=== PATIENT | female | born 1945 | race Caucasian/White ===

== ENCOUNTER → 2017-10-23 12:40 | Outpatient (CLI) | payer MEDICARE, OTHER, SELFPAY ==
--- NOTE | 2017-10-23 | DI.MRI.S_ITS ---
PROCEDURE: MR LUMBAR SPINE WO CON INDICATIONS: LOW BACK PAIN TECHNIQUE: Noncontrast sagittal T1 spin echo and T2 fast echo, sagittal STIR, axial T1 and T2 fast spin echo through the lumbar spine. In cases with scoliosis, additional coronal T2 fast spin echo may be performed. COMPARISON: [facility], , L-SPINE 2-3 VIEWS, 03/26/2013, 18:39. FINDINGS: Image quality: Excellent. Alignment and Curvature: There is mild grade 1 anterolisthesis seen at the L3-L4 level. Bone Marrow: Marrow is of normal overall signal. No acute vertebral body compression fractures. Spinal Cord: Conus medullaris terminates at the L1 level. Visualized cord demonstrates normal signal and size. Mild prominence of the central canal can be seen involving the conus, which is not regarded to be frankly pathologic. Paraspinous Soft Tissues: No paravertebral masses. T12-L1: Normal appearance. L1-L2: Normal appearance. L2-L3: Mild loss of disc height is seen. Loss of disc signal is seen. Mild generalized disc bulge is seen. Moderate facet joint hypertrophy is seen. No significant neural foraminal narrowing is seen. Mild central canal narrowing is seen. L3-L4: Mild to moderate loss of disc height and disc signal are seen. Moderate disc bulge is seen, which is eccentric to the left. Prominent facet hypertrophy seen, with associated moderate hypertrophy of the ligamentum flavum. Moderate bilateral neural foraminal narrowing is seen. Moderate central canal narrowing is seen. L4-L5: Postoperative changes are seen this level, with a disc spacer and right-sided pedicle screws. There is associated susceptibility artifact. The disc height is relatively well-preserved. Mild to moderate disc bulge is seen. No significant neural foraminal or central canal narrowing are seen. L5-S1: Moderate to severe loss of disc height is seen. Mild generalized disc bulge is seen. Mild facet joint hypertrophy is seen. No neural foraminal or central canal narrowing can be seen. IMPRESSION: Unremarkable postoperative change at L4-L5. Mild grade 1 anterolisthesis at the L3-L4. Multiple levels of degenerative change are seen, which are most prominent at the L3-L4 level. Dictated by: Nikolay Jaramillo M.D. on 10/23/2017 at 13:13 Approved by: Nikolay Jaraimllo M.D. on 10/23/2017 at 13:20
== END ==
PROVIDERS: PCP Physician Assistant; Visit Provider Orthopaedic Surgery
DX: M51.36 Other intervertebral disc degeneration, lumbar region (principal); M43.16 Spondylolisthesis, lumbar region
CPT/HCPCS: 72148

== ENCOUNTER → 2018-01-15 13:30 | Outpatient (CLI) | payer MEDICARE, OTHER, SELFPAY ==
--- NOTE | 2018-01-15 13:32 | DI.MRI.S_ITS ---
PROCEDURE: MR HIP RT WO CON INDICATIONS: Right hip actabulosis impingement TECHNIQUE: Noncontrast coronal T1 spin echo and STIR through the bony pelvis. Coronal and axial T2 fast spin echo with fat saturation, sagittal T1 spin echo, and oblique axial T2 fast spin echo with fat saturation through the hip. COMPARISON: None. FINDINGS: Image quality: Excellent. Bones and joints: Lumbar spinal instrumentation. Bone marrow of the pelvic ring and proximal femurs show normal signal throughout. No intraosseous lesions or fractures. No avascular necrosis of the femoral heads. The visualized lower lumbar spine appears normally aligned. Tendons and ligaments: The gluteus medius and minimus tendons appear intact, without associated muscle atrophy. The nearby proximal iliotibial band also appears intact. The iliopsoas tendon appears intact, without adjacent bursal fluid collections or evidence for impingement syndrome. The origin of the hamstring tendon is mildly enlarged with heterogeneous signal change at the ischial tuberosity in keeping with low-grade age indeterminate tendinopathy. The straight and reflected heads of the rectus femoris muscle origin appear intact, as well as the conjoint tendon. The ligamentum teres appears intact where visualized. Labrum and cartilage: The acetabular labrum appears intact although there may be age-related fraying.Partial-thickness loss of the right hip articular cartilage. The alpha angle of the femur is within normal limits at less than 55 degrees. Soft tissues: Visualized muscles demonstrate normal bulk and internal signal. Quadratus femoris muscle demonstrates no internal edema to suggest ischiofemoral impingement. The proximal sciatic neurovascular bundle appears normal adjacent to the the hamstring tendons. No free pelvic fluid. Bladder wall thickness is normal. Large heterogeneous mass within the pelvis probably involving the uterus. These probably represent uterine fibroids, however indeterminate. IMPRESSION: Right hip degeneration. No definite labral tear although if there is persistent high clinical suspicion, dedicated hip MR arthrography could be performed. Mild tendinopathy involving the hamstring origin, age-indeterminate. Multiple intrapelvic and adnexal masses, which could represent large uterine fibroids although technically indeterminate. Please correlate clinically man with laboratory data. If necessary, dedicated evaluation with contrast enhanced pelvic MRI could be performed or continued surveillance with serial pelvic ultrasound examinations to exclude possible ovarian neoplasm. Dictated by: Alexis Whatley M.D. on 01/15/2018 at 15:15 Approved by: Alexis Whatley M.D. on 01/15/2018 at 15:35
== END ==
PROVIDERS: PCP Physician Assistant; Visit Provider Physical Medicine & Rehabilitation
DX: M25.851 Other specified joint disorders, right hip (principal); M16.11 Unilateral primary osteoarthritis, right hip; R19.09 Other intra-abdominal and pelvic swelling, mass and lump
CPT/HCPCS: 73721

== ENCOUNTER 2018-02-21 10:17 | Day surgery (SDC) | payer MEDICARE, OTHER, SELFPAY ==
--- NOTE | 2018-02-21 08:15 | PM.PREOP ---
Pre-operative Note Interval Note Pre-op Check: Yes History & Physical Reviewed by Physician Changes: No
[2018-02-21 10:55] VITALS: BP 144/77; PULSE 65; RESP 16; TEMP 36.8; O2SAT 100; BMI 24.9
[2018-02-21] MEDS: PROPARACAINE 0.5% OPHTH SOL 2 DROPS EYE-OP (11:00)
[2018-02-21] MEDS: CATARACT EYE COMPOUND (10 DROPS/SYRINGE) 3 DROPS EYE-OP (11:05)
[2018-02-21 11:30] VITALS: BP 120/70; PULSE 64; RESP 20; O2SAT 100
[2018-02-21 11:50] VITALS: BP 128/78; PULSE 63; RESP 20; TEMP 36.6; O2SAT 98
[2018-02-21] MEDS: BALANCED SALT IRRIG SOLN NO.2 15 ML IRRIG.SOLN IRR (12:11)
[2018-02-21] MEDS: HYALURONATE SODIUM 10 MG/ML SYRINGE INJ (12:12)
[2018-02-21] MEDS: MOXIFLOXACIN OPHTH DROPS 3 ML BOTTLE 2 DROPS INJ (12:12)
[2018-02-21] MEDS: OFLOXACIN 0.3% OPHTH 5 ML 2 DROPS EYE-RIGHT (12:12)
[2018-02-21] MEDS: NEOMYCIN/POLY/DEX OPHTH OINT 1 APPLIC EYE-RIGHT (12:12)
[2018-02-21] MEDS: CHONDROIDTIN/SOD HYALURONATE 1.05 ML SYRINGE INTRAOCULA (12:12)
[2018-02-21] MEDS: PHENYLEPHRINE/LIDOCAINE VIAL (OR) 0.2 ML EYE-OP (12:13)
[2018-02-21] MEDS: BALANCED SALT IRRIG SOLN NO.2 500 ML, EPINEPHrine 1 MG IRR (12:14)
[2018-02-21] MEDS: LIDOCAINE 2% 4 ML, BUPIVACAINE 0.5% (PF) 4 ML, HYALURONIDASE 150 UNIT INJ (12:14)
[2018-02-21] MEDS: TRIAMCINOLONE 50 MG/5 ML VIAL INJ (12:14)
--- NOTE | 2018-02-21 14:43 | PM.OP.1 ---
Operative Date/Time/Diagnoses Date of procedure: 02/21/18 Time of procedure: 12:00 Procedure & Clinicians Procedure: Date of service: February 21, 2018 Preoperative diagnoses: 1. Right cortical nuclear sclerotic cataract. 2. Poliosis. 3. Neuropathy. Postoperative diagnoses: 1. Cataract removed with phacoemulsification and posterior chamber intraocular lens. Procedure: Phacoemulsification with posterior chamber intraocular lens implant. Surgeon: Fide Galan MD Complications: None Specimen: None Implant: [id number] Blood loss: None Anesthesia: Retrobulbar with monitored standby Anesthesiologist: Casimiro Salcedo M.D. Description of procedure: Patient is a female year old with decreased vision due to cataract which is affecting activities of daily living. She wants surgery to improve vision. She was taken to the operating room and given IV sedation. A retrobulbar block insert consisting of 6 cc of 2% xylocaine without epinephrine mixed half and half with 0.5% Marcaine with 1 cc of hyaluronidase added is placed between the medial and lateral 1/3 of the inferior orbital rim. Lid akinesia is obtain with 1% xylocaine with epinephrine infiltrated along the lid margin. The eye is manually massaged for 30 sec, prepped using Betadine solution, and draped in the usual sterile fashion. Temporal approach was made, a 1 mm side-port incision was made at the 7:30 position. Phenylephrine 1.5% mixed with 1% xylocaine 0.2 cc was placed into the anterior chamber. Viscoat followed by Citlalli was then placed. A 2.6 mm clear incision with a 2.6 mm blade was placed at the 170 degree meridian. A 360 degree capsulorrhexis style capsulotomy was then performed with a cystitome needle on a Healon. Hydrodelineation and hydrodissection were performed. The phacoemulsification unit is introduced, and sculpting notice used to groove the central lens. It is then removed in chopping mode. Epi nucleus is removed with epinuclear mode and irrigation aspiration was used to remove the peripheral cortex. The posterior capsule is polished. The intraocular lens is selected, inspected, power confirmed, and placed in the posterior chamber. The pupil was constricted. The wound was stromally hydrated and tested for leaks, there was none and left sutureless. Vigamox 0.1 cc was placed into the anterior chamber. Kenalog 0.2 cc was placed in the superior subconjunctival space. A drop of antibiotic and was placed and the eye was patched and shielded. The patient was stable and returned to the recovery room in excellent condition. Dictated by: Fide Galan MD Copy to: [facility] Same procedure as scheduled: Yes
== END 2018-02-21 13:00 ==
LOC: OR 10:18
PROVIDERS: PCP Physician Assistant; Visit Provider Ophthalmology
DX: H25.11 Age-related nuclear cataract, right eye (principal); I10 Essential (primary) hypertension
CPT/HCPCS: J0171; J2704; J3301; J3470

== ENCOUNTER → 2018-02-26 14:07 | Outpatient (CLI) | payer MEDICARE, OTHER, SELFPAY ==
--- NOTE | 2018-02-26 | DI.US.S_ITS ---
PROCEDURE: US PELVIC COMPLETE INDICATIONS: FIBROIDS TECHNIQUE: Real-time scanning was performed of the pelvic organs, with image documentation. Additional endovaginal scanning was necessary due to incomplete visualization of the adnexal and endometrial structures by transabdominal scanning. COMPARISON: None. FINDINGS: Transabdominal scanning: Limited scanning through the kidneys shows no hydronephrosis. No pathologic free abdominal or pelvic fluid. Endovaginal scanning: Uterus: Uterus is enlarged in size at the 8.7 x 12.4 x 11.0 cm, and the uterus contains at least 2 distinguishable presumed fibroids located at the midline anteriorly in the subserosal space measuring up to 9.6 cm and located on the right anteriorly in the subserosal space measuring up to 4.9 cm.. The endometrium cannot be clearly visualized due to the heterogeneous echotexture of the myomatous uterus, and note is made of fluid within what appears to be the endometrial canal with a 1.1 x 0.9 x 1.1 cm nodule within. Ovaries: The ovaries are not visualized. IMPRESSION: There is a discrete nodular mass within the endometrial space measuring up to 1.1 cm, in addition to distortion of the myometrium by at least 2 large fibroids the largest of which measures up to 12.4 cm. The nodule within the endometrial space demonstrates internal vascularity, and presumably represents a endometrial polyp but gynecological consultation is recommended for consideration of excisional biopsy in this postmenopausal 72-year-old patient. Nonvisualization of the ovaries bilaterally presumably due to postmenopausal ovarian atrophy and overlying bowel gas. Dictated by: Javi Mann M.D. on 02/26/2018 at 15:31 Approved by: Javi Mann M.D. on 02/26/2018 at 15:36
== END ==
PROVIDERS: PCP Physician Assistant; Visit Provider Physician Assistant
DX: D25.2 Subserosal leiomyoma of uterus (principal); D26.1 Other benign neoplasm of corpus uteri
CPT/HCPCS: 76830; 76856

== ENCOUNTER 2018-03-14 06:42 | Day surgery (SDC) | payer MEDICARE, OTHER, SELFPAY ==
--- NOTE | 2018-03-09 16:53 | PM.PREOP ---
Pre-operative Note Interval Note Pre-op Check: Yes History & Physical Reviewed by Physician Changes: No
--- NOTE | 2018-03-09 16:54 | P.OP_ITS ---
Operative Date/Time/Diagnoses Date of procedure: 03/09/18 Time of procedure: 08:00 Procedure & Clinicians Procedure: Date of service:February Preoperative diagnoses: 1. Nuclear sclerotic and cortical cataract 2. Astigmatism which she likes to correct the toric intra-ocular lens. Postoperative diagnoses: 1. Cataract Removed with phacoemulsification with placement of a posterior chamber toric intraocular lens implant. Procedure: Phacoemulsification with posterior chamber intraocular lens implant Surgeon: Fide Galan MD Complications: none Specimen: None Implant:[id number] [place] 091 Blood loss: None Anesthesia: Retrobulbar with monitored standby Anesthesiologist: Sarmad Hagan M.D. Description of procedure: Patient is a 72 year old female with decreased vision due to cataract which is affecting activities of daily living. She wants surgery to improve vision. She also wishes to collect her astigmatism and have a nearsighted target. She was taken to the operating room and given IV sedation. A retrobulbar block consisting of 6 cc of 2% xylocaine without epinephrine mixed half and half with 0.5% Marcaine with 1 cc of hyaluronidase added is placed between the medial and lateral 1/3 of the inferior orbital rim. The eye is manually massaged for 30 sec, prepped using Betadine solution, and draped in the usual sterile fashion. Temporal approach was made, a 1 mm side-port incision was made at the 12 oclock meridian. Phenylephrine 1.5% mixed with 1% xylocaine 0.2 cc was placed into the anterior chamber. Viscoat followed by Citlalli was then placed. A 2.6 mm clear incision with a 2.6 mm blade was placed at the 3 oclock meridian. A 360 degree capsulorrhexis style capsulotomy was then performed with a cystitome needle on a Healon. Hydrodelineation and hydrodissection were performed. The phacoemulsification unit is introduced, and sculpting notice used to groove the central lens. It is then removed in chopping mode. Epi nucleus is removed with epinuclear mode and irrigation aspiration was used to remove the peripheral cortex. The posterior capsule is polished. The intraocular lens is selected, inspected, power confirmed, and placed in the posterior chamber at the 91 degree meridian. The pupil was not constricted. The wound was stromally hydrated and tested for leaks, there was none and was left sutureless. Vigamox 0.1 cc was placed into the anterior chamber. Kenalog 0.2 cc was placed in the superior subconjunctival space. A drop of antibiotic and was placed and the eye was patched and shielded. The patient was stable and returned to the recovery room in excellent condition. Dictated by: Fide Galan MD Copy to: [facility] Same procedure as scheduled: Yes
[2018-03-14] MEDS: PROPARACAINE 0.5% OPHTH SOL 2 DROPS EYE-OP (07:10)
[2018-03-14] MEDS: CATARACT EYE COMPOUND (10 DROPS/SYRINGE) 3 DROPS EYE-OP (07:13)
[2018-03-14 07:14] VITALS: BP 134/77; PULSE 69; RESP 15; TEMP 36.6; O2SAT 100; BMI 25.2
[2018-03-14] MEDS: MOXIFLOXACIN OPHTH DROPS 3 ML BOTTLE 2 DROPS INJ (08:13)
[2018-03-14] MEDS: LIDOCAINE 2% 4 ML, BUPIVACAINE 0.5% (PF) 4 ML, HYALURONIDASE 150 UNIT INJ (08:15)
[2018-03-14] MEDS: BALANCED SALT IRRIG SOLN NO.2 500 ML, EPINEPHrine 1 MG IRR (08:16)
[2018-03-14] MEDS: TRIAMCINOLONE 50 MG/5 ML VIAL INJ (08:17)
[2018-03-14] MEDS: PHENYLEPHRINE/LIDOCAINE VIAL (OR) 0.2 ML EYE-OP (08:18)
[2018-03-14] MEDS: CHONDROIDTIN/SOD HYALURONATE 1.05 ML SYRINGE INTRAOCULA (08:18)
[2018-03-14] MEDS: HYALURONATE SODIUM 10 MG/ML SYRINGE INJ (08:19)
[2018-03-14] MEDS: TOBRA/DEX 0.3%/0.1% OPHTH OINT 1 APPLIC EYE-LEFT (08:22)
[2018-03-14] MEDS: NEOMYCIN/POLY/DEX OPHTH OINT 1 APPLIC EYE-LEFT (08:30)
[2018-03-14] MEDS: BALANCED SALT IRRIG SOLN NO.2 15 ML IRRIG.SOLN IRR (08:31)
[2018-03-14 08:44] VITALS: BP 137/74; PULSE 71; RESP 15; TEMP 36.6; O2SAT 95
== END 2018-03-14 08:55 | disposition home or self-care (01) ==
LOC: OR 06:45
PROVIDERS: PCP Physician Assistant; Visit Provider Ophthalmology
DX: H25.12 Age-related nuclear cataract, left eye (principal); H52.202 Unspecified astigmatism, left eye; I10 Essential (primary) hypertension
CPT/HCPCS: J0171; J2250; J2704; J3010; J3301; J3470; V2787

== ENCOUNTER 2018-04-21 08:49 | Emergency (ER) | payer MEDICARE, OTHER, SELFPAY ==
[2018-04-21 08:52] VITALS: BMI 24.9
[2018-04-21 09:00] VITALS: BP 144/90; PULSE 101; O2SAT 99
--- NOTE | 2018-04-21 09:42 | ED.BACK ---
HPI - Back Pain/Injury General Chief Complaint: Back Pain/Injury Stated Complaint: BACK PAIN Time Seen by Provider: 04/21/18 09:34 Source: patient, family and old records reviewed Mode of arrival: ambulatory Limitations: no limitations History of Present Illness HPI Narrative: This is a 72-year-old female who comes to the emergency department with complaint of back pain. Patient states she has had chronic back and hip issues in the past. She has seen Dr. marvin as well as Dr. Joseph is. She also follows with pain management. She typically takes a half tablet of hydrocortisone debris times daily for pain. Yesterday she was walking down the hallway when she felt a sudden increase in low back pain and radiation to the right buttock and leg. Patient states she has had similar in the past but not quite as intense. She is not having any numbness tingling. She is not having any new loss of bowel or bladder control. She has not had any fevers, no chest pain or shortness of breath, no other GI or urinary symptoms. Patient had an MRI in October which did show bulging discs in the L4-L5 region patient has had injections in that area before. And there has been discussion of surgery. Patient has had a Medrol Dosepak before with a good improvement of her symptoms. She is also taking Celebrex daily. Related Data Home Medications Medication Instructions Recorded Confirmed diclofenac sodium [Voltaren] 1 ashlie TOPICAL QDAYP PRN #0 06/27/16 04/17/18 medroxyprogesterone 2.5 mg PO QDAY #0 06/27/16 04/17/18 celecoxib PO 12/22/17 04/17/18 gabapentin 600 mg PO BID 12/22/17 04/17/18 hydrocodone bitartrate ER 10 mg 10 mg PO Q12H 02/08/18 04/17/18 capsule, oral only, extended rel 12 hr lisinopril-hydrochlorothiazide 1 tab PO DAILY 02/21/18 04/17/18 Previous Rx's Medication Instructions Recorded hydrocodone-acetaminophen [Reliance] 1 tab PO Q6H #5 tab 04/21/18 methylprednisolone [Medrol (Seth)] See Label Instructions PO PER PKG 04/21/18 DIR #21 each Allergies Allergy/AdvReac Type Severity Reaction Status Date / Time epinephrine [EPINEPHRINE] Allergy Severe I WENT Verified 04/17/18 12:04 INTO SHOCK, TACHYCARDIA adhesive [ADHESIVE] Allergy Intermediate STERI-STRIP: Verified 04/17/18 12:04 RASH,INFECTION Penicillins [PENICILLINS] Allergy Intermediate RASH Verified 04/17/18 12:04 Review of Systems Review of Systems All systems reviewed & are unremarkable except as noted in HPI and below Constitutional Denies fever(s) Cardiovascular Denies chest pain and Denies dyspnea Respiratory Denies dyspnea Gastrointestinal Gastrointestinal: Denies abdominal pain, Denies change in bowel habits, Denies fecal incontinence, Denies diarrhea, Denies nausea and Denies vomiting Genitourinary Denies hematuria, Denies dysuria, Denies flank pain, Denies urinary incontinence and Denies urinary urgency Musculoskeletal Reports as per HPI, Reports back pain, Denies limited range of motion, Denies muscle weakness, Denies numbness, Reports radiating pain into limb and Reports stiffness Neurologic Denies focal weakness, Denies numbness and Reports radicular pain (Right leg) [facility] Social History household members: spouse Smoking Status: Never smoker Exam Narrative Exam Narrative: GENERAL: Alert and oriented x three, well-nourished, well-appearing female in mild to moderate distress. HEENT: Head normocephalic, atraumatic, EOMI, pupils reactive, face symmetric, moist mucous membranes NECK: Supple, full range of motion CARDIOVASCULAR: Regular rate and rhythm without murmurs, rubs or gallops. RESPIRATORY: Breath sounds equal bilaterally, no wheezes rales or rhonchi. ABDOMEN: Soft, nontender. Normoactive bowel sounds all 4 quadrants. No guarding or rebound, rigidity, no mass : No CVA tenderness BACK: No cervical, thoracic or lumbar vertebral point tenderness. Patient has normal range of motion although she does have discomfort with rolling over on the bed or sitting up. Rectal exam is normal sphincter tone. Muscle strength is 5/5 in lower extremities, DTRs are 2/4 and lower extremities. Dorsalis pedis and tibialis pulses are 2+ and lower extremities. Sensation is intact in the lower extremities. EXTREMITIES: Normal range of motion, no clubbing or edema. Neurovascularly intact NEUROLOGICAL: Cranial nerves II through XII grossly intact. Moving all extremities SKIN: Warm, dry, no petechiae, no rashes or lesions. Initial Vital Signs Initial Vital Signs: Vital Signs Pulse Rate 101 H 04/21/18 09:00 Blood Pressure 144/90 H 04/21/18 09:00 Pulse Oximetry 99 04/21/18 09:00 Course Orders Ordered: Discontinued Medications Hydrocodone Bitart/Acetaminophen (Reliance 10/325) 1 tab PO NOW ONE Stop: 04/21/18 10:36 Hydrocodone Bitart/Acetaminophen (Reliance 5/325) 1 tab PO NOW ONE Stop: 04/21/18 10:37 Last Admin: 04/21/18 10:37 Dose: 1 tab Cyclobenzaprine HCl (Flexeril) 10 mg PO NOW ONE Stop: 04/21/18 09:58 Last Admin: 04/21/18 10:20 Dose: 10 mg Ketorolac Tromethamine (Toradol) 30 mg IM NOW ONE Stop: 04/21/18 09:58 Last Admin: 04/21/18 10:20 Dose: 30 mg Vital Signs - 8 hr 04/21/18 09:00 04/21/18 10:00 04/21/18 11:03 Pulse Rate 101 H 86 62 Respiratory Rate 16 Blood Pressure [Right Arm] 144/90 H 134/71 152/95 H Pulse Oximetry 99 98 100 MDM - Back Pain/Injury MDM Narrative Medical decision making narrative: Discussed with patient she does not have any red flag symptoms, she does have known disc bulging on prior MRI and we discussed follow-up for possibly BP MRI if her symptoms are not improving over the next couple days. She has follow-up in the next month with Dr. Joseph as for her back she noticed she was having a little bit of flare up over the last couple days. She has had good response to Medrol Dosepaks and will continue this. We will give her several tablets of hydrocodone in case she needs a little bit extra for breakthrough pain. She is to continue her Celebrex and she has Flexeril at home as well. Discharge Plan Departure Patient Disposition: Home Clinical Impression: Low back pain Discharge Date/Time: 04/21/18 11:14 Interventions: ED Discharge Assessment Last Done: 04/21/18 11:13 Instructions: DI for Low Back Pain Activity Restrictions/Additional Instructions: Follow-up with your primary care in the next 7-10 days for recheck. You may also call Dr. ceballos office with Orthopedic surgery for follow-up as well. Continue your hydrocodone half tablet 3 times daily you may take a full tablet if needed. You may take Flexeril which you have at home 1 tablet every 8 hr as needed for muscle spasm. Continue your Celebrex as prescribed. Take Medrol Dosepak until it is completed. I would recommend taking this medication with food. Return to the ER for fevers, new loss of bowel or bladder control, rapidly worsening in pain, new numbness or weakness of your extremity with inability to lift or move your foot, legs or toes. Prescriptions: New methylprednisolone [Medrol (Seth)] 4 mg tablets,dose pack See Label Instructions PO PER PKG DIR Qty: 21 RF: 0 hydrocodone-acetaminophen [Reliance] 5-325 mg tablet 1 tab PO Q6H Qty: 5 RF: 0 No Action medroxyprogesterone 2.5 MG tablet 2.5 mg PO QDAY Qty: 0 RF: 0 diclofenac sodium [Voltaren] 1 % gel 1 ashlie Topical QDAYP PRNQty: 0 RF: 0 lisinopril-hydrochlorothiazide 10-12.5 mg Tablet 1 tab PO DAILY RF: 0 gabapentin 600 mg PO BID RF: 0 celecoxib PO RF: 0 hydrocodone bitartrate 10 mg capsule, oral only, ER 12hr 10 mg PO Q12H RF: 0 Referrals: Kin Valdivia MD [Physician] - Jocelyne Araujo PA-C [Primary Care Provider] -
[2018-04-21 10:00] VITALS: BP 134/71; PULSE 86; O2SAT 98
[2018-04-21] MEDS: KETOROLAC 60 MG/2 ML VIAL 30 MG IM (10:20)
[2018-04-21] MEDS: CYCLOBENZAPRINE 10 MG TABLET PO (10:20)
[2018-04-21] MEDS: HYDROCODONE/ACET 5/325 TABLET 1 TAB PO (10:37)
--- NOTE | 2018-04-21 10:45 | PC.NURSE ---
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 now with severe back pain.
[2018-04-21 11:03] VITALS: BP 152/95; PULSE 62; RESP 16; O2SAT 100
== END 2018-04-21 11:14 | disposition home or self-care (01) ==
PROVIDERS: Emergency Provider Emergency Medicine; PCP Physician Assistant
DX: M54.9 Dorsalgia, unspecified (principal)
CPT/HCPCS: 96372; 99283; J1885

== ENCOUNTER 2018-05-29 13:11 | Outpatient (CLI) | payer MEDICARE, OTHER, SELFPAY ==
[2018-05-29] VITALS (7 sets, daily range): BP systolic 112–130; BP diastolic 71–84; PULSE 16–78; RESP 11–16; TEMP 36.4; O2SAT 97–100
--- NOTE | 2018-05-29 13:13 | DI.RAD.S_ITS ---
PROCEDURE: PAIN L/S TRANSFORAMINAL INJECT INDICATIONS: SPINAL STENOSIS FINDINGS: Fluoroscopic spot filming was performed to verify placement of spinal needles at the L3-L4 level(s), as labeled on the films. Appropriate location(s) of the needle tip(s) was confirmed by injection of iodinated contrast. Note is made of right hemilaminectomy and spinal fusion at L4-L5. IMPRESSION: Fluoroscopy for pain management. Dictated by: Sarah Dolan M.D. on 05/30/2018 at 9:26 Approved by: Sarah Dolan M.D. on 05/30/2018 at 9:27
[2018-05-29] MEDS: MIDAZOLAM 5 MG/5 ML VIAL IV (13:50)
--- NOTE | 2018-05-29 14:04 | PC.NURSE ---
Pt tolerated procedure well. Able to get off table with 2 person assist. Right leg wouldn't work for her. Pt alert and awake and able to make it to W/C. Transferred pt to pre procedure room via W/C for continued care by Silvana KENDRICK.
--- NOTE | 2018-05-29 14:06 | P.PCN_ITS ---
Procedures Date/Time Date of procedure: 05/29/18 Time of procedure: 14:05 General Procedure description: PROVIDER: Elroy Joseph DO Operative Note PREOP DIAGNOSIS 1. FORAMINAL STENOSIS WITH LE SYMPTOMS, POST OP DIAGNOSIS 1. FORAMINAL STENOSIS WITH LE SYMPTOMS, PROCEDURES 1. FLUOROSCOPICALLY GUIDED CONTRAST CONTROLLED TRANSFORAMINAL EPIDURAL STEROID INJECTION - RIGHT L3/4 TFESI SURGEON: Elroy Joseph DO INDICATIONS Enrique is referred by CIARA Araujo for treatment of Foraminal Stenosis with right LE Symptoms FINDINGS Foraminal Nerve Root Compression secondary to disc disease and facet hypertrophy DESCRIPTION OF PROCEDURE Following denial of allergy and review of potential side effects and complications, including, but not necessarily limited to, infection, allergic reaction, local tissue breakdown, stroke, temporary or permanent nerve injury, paralysis, and possible , the patient indicated that the patient understood and agreed to proceed. An informed consent document was signed by the patient, witnessed by a nurse, and placed in the patient's chart. Additionally, other treatment options including medications, modalities, and physical therapy were reviewed with the patient. After review of previous anaesthesic history and IV conscious sedation the patient was deemed safe to proceed with todays procedure with IV conscious sedation as ASA class II designation. Safety time-out was performed to confirm patient ID, procedure to be performed and site of procedure. IV sedation was accomplished with a combination of 2mg was administered by the RN after DO order , titrated to patient comfort during the course of the procedure while the patient remained responsive to all verbal commands In the prone position following sterile prep and drape of the lumbar region, the right L3/4 posterior neuroforamen was identified fluoroscopically. The skin was anesthetized via a 25-gauge 1.5-inch needle with 1% lidocaine solution. At this point, a 25-gauge 3.5-inch spinal needle was atraumatically introduced and advanced under fluoroscopic guidance through the posterior right L3/4 neuroforamen to approximately the anterior aspect of the canal. Depth was confirmed on lateral view. Following negative aspiration, injection of approximately 1.5 cc of Isovue 200 under live fluoroscopy in the AP view confirmed excellent flow along the nerve root, into the epidural space without vascular or intrathecal uptake observed Radiological data, including multiple fluoroscopic views of the lumbosacral spine, reveal a spinal needle at the right L3/4 posterior neuroforamen. Subsequent views show flow of contrast material flowing superiorly and inferiorly along the nerve root confirming epidural flow. Subsequently, a test dose of 1.5 cc of 1% lidocaine solution was administered and patient was observed for two minutes for signs or symptoms of complications , including abdominal pain, shortness of breath, bilateral upper or lower extremity weakness, nausea and vomiting, prior to steroid injection. At this point, a total of 3 cc or 20 mg of dexamethasone and 80mg Depo medrol was injected without incident. The patient tolerated the procedure well without signs or symptoms of complications prior to transfer to the recovery area continued monitoring without incident. The patient was then transferred to the recovery area where they were observed for an appropriate time after the injection. The patient reported a VAS score of 7 prior to the procedure and a post-procedure VAS of 0. Total Fluoroscopy Time: 24.2 seconds Total Conscious Sedation Time: 24min POST OP INSTRUCTIONS The patient was provided a Pain Log to continue to record their response to the target-specific procedure prior to follow-up visit with their referring physician. Additionally, specific post-injection care instructions and a contact number to our office were provided if concerns arise regarding possible complications associated with the procedure are suspected. Elroy Joseph, Complications: none
--- NOTE | 2018-05-29 14:15 | PC.NURSE ---
ACCEPTED CARE OF PT IN POST PROC AREA IN STABLE CONDITION
[2018-05-29] MEDS: methylPREDNISolone acetate 80 MG/ML VIAL INJ (14:17)
[2018-05-29] MEDS: DEXAMETHASONE 10 MG/ML VIAL 20 MG INJ (14:17)
[2018-05-29] MEDS: IOPAMIDOL 15 ML VIAL 3 ML INJ (14:18)
[2018-05-29] MEDS: BUPIVACAINE 0.25% (PF) VIAL 2 ML INJ (14:18)
--- NOTE | 2018-05-30 16:40 | PC.NURSE ---
FOLLOW UP CALL MADE. PT STATES SHE IS PAIN FREE. DENIES QUESTIONS/CONCERNS AT THIS TIME. REMINDED PT TO CONTINUE WITH GREEN SHEET AND TO BRING THAT TO FOLLOW UP APPT.
== END 2018-05-29 14:56 | disposition home or self-care (01) ==
LOC: RAD 13:12
PROVIDERS: PCP Physician Assistant; Visit Provider Physical Medicine & Rehabilitation
DX: M48.062 Spinal stenosis, lumbar region with neurogenic claudication (principal); M51.16 Intervertebral disc disorders with radiculopathy, lumbar region; M43.16 Spondylolisthesis, lumbar region; M25.851 Other specified joint disorders, right hip; Z98.1 Arthrodesis status
CPT/HCPCS: 64483; 99152; J1040; J1100; J2250

== ENCOUNTER 2018-06-01 08:36 | Day surgery (SDC) | payer MEDICARE, OTHER, SELFPAY ==
[2018-05-29 07:44] VITALS: BMI 25.0
[2018-06-01] VITALS (7 sets, daily range): BP systolic 127–152; BP diastolic 68–82; PULSE 71–78; RESP 10–16; TEMP 36.1–36.8; O2SAT 72–100; BMI 25.0
--- NOTE | 2018-06-01 | PATH_ITS ---
[facility] Accession Number: [id number] . 01 Material submitted: . PART A: CERVIX @ 1020 PART B: POLYP PART C: ENDOMETRIUM . 02 Diagnosis: A. Cervix at 1020: Squames with reactive atypia; negative for squamous dysplasia and malignancy. Scant strips of glandular epithelium; negative for glandular dysplasia, hyperplasia, cytologic atypia, and malignancy. No transformation zone is identified. . B. Polyp: Multiple portions of smooth muscle with no diagnostic abnormality. Portions of blood and fibrin. Small glandular fragments of uncertain origin; negative for glandular dysplasia, hyperplasia, cytologic atypia, and malignancy. . C. Endometrium: Small fragments of smooth muscle with no diagnostic abnormality. Scant glandular elements; negative for glandular hyperplasia, cytologic atypia, and malignancy. The specimen consists predominantly of blood and fibrin. MR/06/04/2018 . 02 Electronically signed: . Tamera Villanueva MD, Pathologist NPI- [id number] . 01 Gross description: . Received three formalin-filled containers, each labeled with the patient's name: . A. In a container labeled cervix at 1020, the specimen consists of approximately a 2.25 cc aggregate of mucoid material and blood, which is filtered, wrapped, and entirely submitted in cassette A. B. In a container labeled 2 Polyp, the specimen consists of approximately a 0.25 cc aggregate of tissue, mucoid material, and blood, which is filtered, wrapped, and entirely submitted in cassette B. C. In a container labeled endometrium, the specimen consists of approximately a 2.0 cc aggregate of mucoid material and blood, which is filtered, wrapped, and entirely submitted in cassette C. ([id number]) /FRR . 02 Pathologist provided ICD-10: N85.00 . 02 CPT . 286876, 376720, 191006 Performed at: 01 [facility] [address] [place] [address], [place], [place] [id number] MD Luis Perez MD Phone: [phone] Performed at: [facility] [address] [place], [place] [id number] MD Olivia Carbone MD Phone: [phone]
[2018-06-01] MEDS: LACTATED RINGERS 1,000 ML 42 ML IV (09:24)
[2018-06-01] MEDS: CEFOTETAN 2 GM/50 ML PIGGYBACK IV (09:54)
--- NOTE | 2018-06-01 10:17 | SUR.OPER ---
Lithotomy on padded OR bed, head on pillow, arms secured on padded arm boards at <90 degrees abduction. Legs secured in padded yellow fins stirrups.
--- NOTE | 2018-06-01 10:52 | PM.GYNOP.1 ---
Operative Date/Time/Diagnoses Date of procedure: 06/01/18 Time of procedure: 10:52 Pre-op diagnosis: Endometrial polyp Uterine fibroids Post-op diagnosis: same Procedure: Procedures Operation Date: 06/01/18 09:45 Actual Procedures Side Surgeon p Hysteroscopy D&C, Polypectomy Elroy Mancia MD Indications: Endometrial polyp Uterine fibroids Surgeon: Elroy Mancia Anesthesia Type: General Operative Notes Findings: 16 week size uterine fibroids with large posterior fibroid Cervix extreme anterior Distorted endometrial cavity making visualization difficult Closure Type: not applicable Specimen(s): endometrial curettings and endometrial polyp Estimated blood loss (mL): 100 Procedure in detail: The patient was placed supine upon the operating table and anesthetized. She was then placed in the dorsal lithotomy position and examined under anesthesia. Under anesthesia she was felt to have multiple fibroids and a 16 week sized fibroid uterus. There was one particularly large posterior fibroid. The cervix was angulated directly at the ceiling. The patient was then draped and prepared in the usual fashion. A posterior weighted retractor was set in place. The [place] retractor was placed. The cervix was actually grasped blindly and brought down for visualization. The os find her or green flexible dilator was used and the cavity was isolated and the uterine cavity sounded to 10 cm. The cervix was dilated to a Hegar 11. The hysteroscope was placed. There was an extraordinary irregular endometrial cavity and neither ostia of the fallopian tubes could be visualized. There was some question of whether this was a blind channel. Ino stone polyp forceps were used in tissue was obtained. A curettage was performed and this was sent separately. There was substantial bleeding post curettage. The patient was observed for approximately 10 min in the operating room and the bleeding subsided nicely. The posterior weighted retractor was removed and the patient was taken to the recovery room in satisfactory condition. Complications: none Post-operative Condition: stable Disposition: PACU Plan for aftercare: Home
--- NOTE | 2018-06-01 11:33 | PM.PREOP ---
Pre-operative Note Interval Note History & Physical reviewed/Exam performed by Physician: Yes Changes to H&P: No ASA Class (for procedural sedation): II
--- NOTE | 2018-06-01 11:37 | SUR.PHASEII ---
Pt taken to the bathroom, + void, pt reported mild stinging with urination and minimal bloody output.
[2018-06-01] MEDS: OXYCODONE/ACETAMINOPHEN 5/325 TABLET 1 TAB PO (11:45)
== END 2018-06-01 12:02 | disposition home or self-care (01) ==
PROVIDERS: PCP Physician Assistant
PROC: 0UDB8ZZ Extraction of Endometrium, Via Natural or Artificial Opening Endoscopic (ICD-10-PCS; CPT 58558; principal; 2018-06-01 09:45)
DX: N85.00 Endometrial hyperplasia, unspecified (principal)
CPT/HCPCS: 58558; 88305; J1100; J2405; J2704; J3010

== ENCOUNTER → 2019-03-22 09:03 | Outpatient (CLI) | payer MEDICARE, OTHER, SELFPAY ==
--- NOTE | 2019-03-22 | DI.MG.S_ITS ---
BILATERAL DIGITAL DIAGNOSTIC MAMMOGRAM 3D/2D: 03/22/2019 CLINICAL: Palpable tender left breast lump with pain radiating to the left axilla. 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 She reports that a skin MD put a shot of cortizone to the keloid last year. Patient also reported pain of the left nipple/retroareolar region. Comparison is made to exams dated: 11/11/2016 mammogram, 02/02/2011 mammogram, and 05/26/2009 mammogram - [facility]. The tissue of both breasts is heterogeneously dense. This may lower the sensitivity of mammography. There is a triangular marker overlying the skin of the lateral left breast at the site of the patient's reported palpable tender abnormality. There is no underlying mammographic abnormality. There is also no underlying mammographic abnormality to explain patient's left retroareolar/nipple pain. No suspicious masses, calcifications, or other findings are seen in either breast. IMPRESSION: INCOMPLETE: NEEDS ADDITIONAL IMAGING EVALUATION No mammographic abnormality to correlate with the site of the patient's reported focal palpable tender abnormality of the lateral left breast. Targeted diagnostic ultrasound recommended for further evaluation, which will be performed immediately following this exam. There is also no underlying mammographic abnormality to explain patient's left retroareolar/nipple pain. Targeted diagnostic ultrasound recommended for further evaluation, which will be performed immediately following this exam. This exam was interpreted at Station ID: [id number]. NOTE: For mammograms, a report in lay terms will be sent to the patient. Approximately 15% of breast malignancies will not be visualized mammographically. In the management of a palpable breast mass, a negative mammogram must not discourage biopsy of a clinically suspicious lesion. Electronically Signed By: Bert Da Silva M.D. ecl/:03/22/2019 12:20:20 ACR BI-RADS Category 0: Incomplete [id number]
--- NOTE | 2019-03-22 | DI.US.S_ITS ---
LIMITED ULTRASOUND OF LEFT BREAST AND AXILLA: 03/22/2019 CLINICAL: Palpable tender left breast lump with pain radiating to the left axilla. 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 She reports that a skin MD put a shot of cortizone to the keloid last year. Patient also reported pain of the left nipple/retroareolar region. Comparison is made to exams dated: 03/22/2019 mammogram, 11/11/2016 mammogram, 02/02/2011 mammogram, 05/26/2009 mammogram, 11/07/2008 mammogram, and 05/01/2008 mammogram - [facility]. Color flow and real-time ultrasound of the left breast upper outer quadrant, retroareolar, and axilla regions were performed. Palomino scale images of the real-time examination were reviewed. Targeted ultrasound of the site of the patient's reported focal palpable abnormality demonstrates a focal oval indistinct area of skin thickening in the left breast at 2:30 position 10 cm from the nipple which is isoechoic and blends homogeneously with the adjacent skin. The skin thickening is entirely contained within the skin layer without underlying mass or abnormality. There is no vascularity on Doppler imaging. The area of skin thickening is difficult to measure but measures approximately 1.0 x 0.5 x 0.2 cm. On ultrasound from the site of this palpable abnormality toward the left axilla demonstrates no underlying mass or abnormality. There is no left axillary lymphadenopathy. A 1.8 x 1.0 x 0.5 cm oval circumscribed axillary lymph node without focal cortical thickening and expected minimal hilar vascularity on Doppler imaging is identified, and appears benign. Targeted ultrasound of the left nipple and retroareolar region demonstrates no underlying mass or abnormality. There is no focal ductal dilatation. IMPRESSION: BENIGN 1) Targeted ultrasound of the site of the patient's reported focal palpable abnormality demonstrates an approximately 1.0 x 0.5 x 0.2 cm focal area of skin thickening in the left breast at 2:30 position 10 cm from the nipple which entirely contained within the skin layer, demonstrates no suspicious vascularity, and is without other underlying mass or abnormality. This is most consistent with skin thickening/scarring. Recommend clinical follow-up for further evaluation and management, with follow-up imaging as clinically indicated. 2) No ultrasound evidence of left axillary lymphadenopathy. 3) No sonographic abnormality of the left nipple/retroareolar region to explain patient's reported left nipple/retroareolar pain Recommend clinical follow-up with the patient's referring provider for further evaluation and management. A breast MRI can be considered if there is continued clinical concern. 4) No sonographic evidence of malignancy in the imaged areas of the left breast. Return to annual screening mammography recommended. The patient is advised to monitor her breasts and to return sooner for re-evaluation should anything grow or change. This exam was interpreted at Station ID: [id number]. Electronically Signed By: Bert Da Silva M.D. ecl/:03/22/2019 12:54:38 letter sent: Clinical Evaluation Ultrasound BI-RADS: 2 Benign
== END ==
PROVIDERS: PCP Internal Medicine; Visit Provider Internal Medicine
DX: R92.8 Other abnormal and inconclusive findings on diagnostic imaging of breast (principal); N63.21 Unspecified lump in the left breast, upper outer quadrant; N64.4 Mastodynia
CPT/HCPCS: 76642; 77066; G0279

== ENCOUNTER → 2019-04-26 18:49 | Outpatient (ROUT) | payer MEDICARE, OTHER, SELFPAY ==
[2019-04-26 18:58] LABS: Add Manual Diff / Slide Review NO; Basophils Absolute Auto 0 /uL (0-100); Basophils Percent Auto 0.6 % (0-2); Eosinophils Absolute Auto 100 /uL (0-450); Eosinophils Percent Auto 1.5 % (2-4); Hematocrit 38.1 % (36-46); Hemoglobin 12.6 g/dL (12.0-16.0); Lymphocytes Absolute Auto 1600 /uL (1100-4500); Lymphocytes Percent Auto 18.7 % (25-40); Mean Corpuscular HGB Conc 33.2 % (30-36); Mean Corpuscular Hemoglobin 28.2 PG (26-34); Monocytes Absolute Auto 600 /uL (0-900); Monocytes Percent Auto 7.5 % (3-14); Neutrophils Absolute Auto 6100 /uL (1500-7000); Neutrophils Percent Auto 71.7 % (50-75); Platelet Count 296 X10^3/uL (150-400); Red Blood Cell Count 4.49 X10^6/uL (4.0-5.2); Red Cell Distribution Width 13.8 % (11.6-14.8); White Blood Cell Count 8.6 X10^3/uL (4.5-11.0)
[2019-04-26 19:04] LABS: Alanine Aminotransferase 14 IU/L (<35); Albumin Globulin Ratio 1.7 (1.0-2.8); Alkaline Phosphatase 69 U/L (38-126); Aspartate Aminotransferase 23 IU/L (14-36); Bilirubin Total 0.6 mg/dL (0.2-1.3); Blood Urea Nitrogen 14 mg/dL (7-17); Calcium 9.4 mg/dL (8.4-10.2); Carbon Dioxide 28 mmol/L (22-32); Chloride 102 mmol/L (98-107); Estimated Glomerular Filt Rate > 60.0 mL/min (>60); Globulin 2.4 g/dL (1.7-4.1); Glucose 117 mg/dL (80-110); HEMOLYSIS < 15 (0-50); Potassium 3.7 mmol/L (3.4-5.1); Sodium 138 mmol/L (137-145); Total Protein 6.4 g/dL (6.3-8.2)
== END ==
PROVIDERS: PCP Internal Medicine; Visit Provider Internal Medicine
DX: R10.32 Left lower quadrant pain (principal); R81 Glycosuria; D25.9 Leiomyoma of uterus, unspecified
CPT/HCPCS: 80053; 83036; 85025; 87086

== ENCOUNTER → 2019-04-30 12:04 | Outpatient (CLI) | payer MEDICARE, OTHER, SELFPAY ==
--- NOTE | 2019-04-30 12:10 | DI.CT.S_ITS ---
PROCEDURE: CT KIDNEY URETER BLADDER (KUB) INDICATIONS: Left lower quadrant pain TECHNIQUE: Noncontrast 5 mm thick sections acquired from the diaphragms to the symphysis. 5 mm thick coronal and sagittal reformats were then performed. For radiation dose reduction, the following was used: automated exposure control, adjustment of mA and/or kV according to patient size. COMPARISON: None. FINDINGS: Image quality: Excellent. Lung bases: Lung bases are clear. Heart size is normal. Urinary system: Both kidneys are normal in size. No kidney stones. No hydronephrosis or perinephric fat stranding. Both ureters appear non-dilated throughout their expected courses. Urinary bladder is compressed by the enlarged uterus. Other solid organs: Liver is normal in size. Gallbladder is contracted. Pancreas is normal in contours. Spleen is normal in size. No adrenal nodules. Peritoneum and bowel: Small hiatal hernia. Unenhanced bowel loops demonstrate normal wall thickness and caliber. No free fluid or air. Nodes and vessels: No retroperitoneal or mesenteric adenopathy by size criteria. Aorta and inferior vena cava are normal in caliber. Abdominal wall: No ventral hernias. Pelvis: No free pelvic fluid. No inguinal hernias or adenopathy. Uterus is markedly enlarged, measuring 14 cm craniocaudal by 13 cm anteroposterior by 10 cm transverse. Multiple ill-defined hepatic masses are present, some of which are exophytic. Bones: No suspicious bony lesions. Right-sided L4-L5 fusion has been performed. No vertebral body compression fractures. IMPRESSION: 1. No evidence of urinary tract calcification, nor obstruction. 2. Enlarged uterus secondary to multiple masses, likely representing fibroids. Further assessment with ultrasound is recommended. 3. Small hiatal hernia. Dictated by: Lopez Celeste M.D. on 04/30/2019 at 17:54 Approved by: Lopez Celeste M.D. on 04/30/2019 at 17:57
== END ==
PROVIDERS: PCP Internal Medicine; Visit Provider Internal Medicine
DX: R10.32 Left lower quadrant pain (principal); N85.9 Noninflammatory disorder of uterus, unspecified; K44.9 Diaphragmatic hernia without obstruction or gangrene
CPT/HCPCS: 74176

== ENCOUNTER → 2019-06-03 11:33 | Outpatient (CLI) | payer MEDICARE, OTHER, SELFPAY ==
--- NOTE | 2019-06-03 | DI.US.S_ITS ---
PROCEDURE: US PELVIC COMPLETE INDICATIONS: INTRA-ABD AND PELVIC SWELLING, MASS AND LUMP TECHNIQUE: Real-time scanning was performed of the pelvic organs, with image documentation. Additional endovaginal scanning was necessary due to incomplete visualization of the adnexal and endometrial structures by transabdominal scanning. COMPARISON: [facility], CT, CT KIDNEY URETER BLADDER (KUB), 04/30/2019, 12:07. [facility], US, US PELVIC COMPLETE, 02/26/2018, 14:42. FINDINGS: Transabdominal scanning: Limited scanning through the kidneys shows no hydronephrosis. No pathologic free abdominal or pelvic fluid. Endovaginal scanning: Uterus: Uterus is anteverted and normal in size at 15.2 x 6.5 x 10.1 cm. large uterine fibroids. Mid posterior measuring 11.6 x 8.9 x 9.7 cm. Mid posterior are measuring 3.5 x 3.1 x 4.2 cm. The endometrium measures 7.2 mm in combined thickness. Endometrium is not well-visualized and Ovaries: Not identified. IMPRESSION: 1. Endometrial thickening in this postmenopausal patient up to 7 mm. Endometrial biopsy should be considered if not yet performed. 2. Large uterine fibroids measuring up to 11.6 and 4.2 cm. 3. Ovaries are not identified. Dictated by: Solitario Ramirez M.D. on 06/03/2019 at 21:22 Approved by: Solitario Ramirez M.D. on 06/03/2019 at 21:28
== END ==
PROVIDERS: PCP Internal Medicine; Visit Provider Internal Medicine
DX: R19.00 Intra-abdominal and pelvic swelling, mass and lump, unspecified site (principal); D25.9 Leiomyoma of uterus, unspecified; R93.89 Abnormal findings on diagnostic imaging of other specified body structures
CPT/HCPCS: 76830; 76856

== ENCOUNTER 2019-07-28 10:16 | Observation (INO) | payer MEDICARE, OTHER, SELFPAY ==
[2019-07-28 10:20] VITALS: BP 159/76; PULSE 96; RESP 16; TEMP 37; O2SAT 99
--- NOTE | 2019-07-28 10:32 | ED_ITS ---
HPI - GI Bleed General Chief complaint: GI Bleed Stated complaint: abdominal pain/ bleeding Time Seen by Provider: 07/28/19 10:30 Source: patient Mode of arrival: Ambulatory Limitations: no limitations History of Present Illness HPI Narrative: 73-year-old woman with a history of spinal stenosis, hypertension, peripheral neuropathy presents with almost 24 hours of bright red blood per rectum with significant abdominal cramping. She 1st noticed some lower abdominal cramping yesterday around noon. [place] she needed to have a bowel movement when into the bathroom became profusely diaphoretic and was concerned she was going to lose consciousness. She laid down on the ground and was incontinent of loose brown stool. Was unable to get back to the toilet and had an episode of bright red blood per rectum along with emesis with no evidence of coffee grounds or blood. Continued to be nauseated through the day with increasing abdominal pain mild epigastric, but more left lower quadrant and lower abdomen. Has continued to have a couple of episodes of bright red blood without stool and bloody mucousy stool. Complains of continued tenesmus with mild epigastric pain as well. No fevers, no cough, no chest pain or shortness of breath, no headache and no mental status changes. Related Data Home Medications Medication Instructions Recorded Confirmed diclofenac sodium [Voltaren] 1 ashlie TOPICAL QDAYP PRN #0 06/27/16 07/25/19 medroxyprogesterone 2.5 mg PO QDAY #0 06/27/16 07/25/19 celecoxib PO 12/22/17 07/25/19 gabapentin 600 mg PO BID 12/22/17 07/25/19 lisinopril-hydrochlorothiazide 1 tab PO DAILY 02/21/18 07/25/19 hydrocodone 5 mg-acetaminophen 325 0.5 tab PO Q4H PRN tab 02/06/19 07/25/19 mg tablet estradiol PO DAILY 04/15/19 07/25/19 Allergies Allergy/AdvReac Type Severity Reaction Status Date / Time epinephrine [EPINEPHRINE] Allergy Severe I WENT Verified 07/25/19 13:33 INTO SHOCK, TACHYCARDIA adhesive [ADHESIVE] Allergy Intermediate STERI-STRIP: Verified 07/25/19 13:33 RASH,INFECTION Penicillins [PENICILLINS] Allergy Intermediate RASH Verified 07/25/19 13:33 oxybutynin AdvReac Severe severe Verified 07/25/19 13:33 oral blisters, lip swelling Review of Systems Review of Systems Narrative: Scheduled for surgery of uterine fibroid next month All systems reviewed and are unremarkable except as noted in HPI and below Patient History Medical History Back pain (Acute) GERD (gastroesophageal reflux disease) (Acute) HTN (hypertension) (Acute) Neck pain (Acute) Ovarian tumor (Acute) ARGENIS (stress urinary incontinence, female) (Acute) Urgency incontinence (Acute) Surgical History Hx of arthroscopy of left knee (Acute 12/09/15) Hx of laminectomy (Acute) Hx of repair of right rotator cuff (Acute) S/P arthroscopy of right shoulder (Acute) Status post cataract extraction of both eyes with insertion of intraocular lens (Acute ~2018) Social History household members: spouse Smoking Status: Never smoker alcohol intake: current Smoking Status: Never smoker Substance Use Type: does not use Exam Narrative Exam Narrative: General: Pale appearing, in no acute distress. Able to give a complete and coherent history. Well-nourished well-developed HEENT: Moist mucous membranes, normal sclera with reactive pupils, Neck: No JVD, supple Respiratory: Lungs are clear to auscultation, no wheezing no rales no rhonchi. Full and symmetrical air movement Cardiac: Regular rate and rhythm no murmurs no bruits. Orthostatic by heart rate, resting supine rate of 70 sitting rate of 99 Abdomen: Soft, significant left lower quadrant tenderness with minor guarding no rebound minor diffuse abdominal tenderness otherwise and hypoactive bowel tones, no flank pain Skin: Warm and dry, no rashes Neurologic: Grossly neurologically intact with no obvious asymmetries or abnorm alities Extremities: No trauma, well perfused Psych: Cooperative, appropriate insight and affect Initial Vital Signs Initial Vital Signs: Vital Signs Temperature 98.6 F 07/28/19 10:20 Pulse Rate 96 H 07/28/19 10:20 Respiratory Rate 16 07/28/19 10:20 Blood Pressure 159/76 H 07/28/19 10:20 Pulse Oximetry 99 07/28/19 10:20 Course Orders Ordered: ED Orders 07/28/19 10:55 Complete Blood Count AUTO DIFF Stat Comprehensive Metabolic Panel Stat Partial Thromboplastin Time Stat Prothrombin Time INR Stat Type and Screen Stat 07/28/19 11:58 CT abdomen pelvis w con Stat Sodium Chloride (Normal Saline 0.9%) 1,000 mls @ 1,000 mls/hr IV BOLUS PRN PRN Reason: Fluid replacement Last Admin: 07/28/19 13:00 Dose: 1,000 mls/hr Documented by: BERTRAND Discontinued Medications Ondansetron HCl (Zofran) 4 mg IV NOW ONE Stop: 07/28/19 11:19 Vital Signs Vital signs: Vital Signs - 8 hr 07/28/19 10:20 Temperature 98.6 F Pulse Rate 96 H Respiratory Rate 16 Blood Pressure 159/76 H Pulse Oximetry 99 MDM - GI Bleed Medical Records Attestation: I reviewed the patient's medical records. Lab Data Attestation: I reviewed the patient's lab results. Lab results narrative: Due to leukocytosis and left lower quadrant pain with bright red blood per rectum and no prior history of GI bleeding will proceed to ordering a CT scan of the abdomen and pelvis No significant anemia is appreciated prior to fluid resuscitation Result diagrams: 07/28/19 10:55 07/28/19 10:55 Labs: Lab Results 07/28/19 07/28/19 07/28/19 Range/Units 10:55 10:55 10:55 WBC 15.5 H (4.5-11.0) X10^3/uL RBC 4.67 (4.0-5.2) X10^6/uL Hgb 12.6 (12.0-16.0) g/dL Hct 38.5 (36-46) % MCV 82.5 (80-100) fL MCH 27.0 (26-34) PG MCHC 32.7 (30-36) % RDW 14.9 H (11.6-14.8) % Plt Count 299 (150-400) X10^3/uL Neut % (Auto) 87.5 H (50-75) % Lymph % (Auto) 6.2 L (25-40) % [place] % (Auto) 5.2 (3-14) % Eos % (Auto) 0.1 L (2-4) % Baso % (Auto) 1.0 (0-2) % Neut # (Auto) 18386 H (4768-8670) /uL Lymph # (Auto) 1000 L (7923-1079) /uL [place] # (Auto) 800 (0-900) /uL Eos # (Auto) 0 (0-450) /uL Baso # (Auto) 100 (0-100) /uL PT 12.1 (10.1-12.7) SECONDS INR 1.1 (0.9-1.3) APTT 28 (26.4-36.2) SECONDS Sodium 137 (137-145) mmol/L Potassium 3.7 (3.4-5.1) mmol/L Chloride 101 (98-107) mmol/L Carbon Dioxide 27 (22-32) mmol/L BUN 14 (7-17) mg/dL Creatinine 0.70 (0.52-1.04) mg/dL Estimated GFR > 60.0 (>60) mL/min BUN/Creatinine Ratio 20.0 (6-22) Glucose 137 H (80-110) mg/dL Calcium 9.4 (8.4-10.2) mg/dL Total Bilirubin 0.7 (0.2-1.3) mg/dL AST 23 (14-36) IU/L ALT 14 (<35) IU/L Alkaline Phosphatase 73 (38-126) U/L Total Protein 7.1 (6.3-8.2) g/dL Albumin 4.3 (3.5-5.0) g/dL Globulin 2.8 (1.7-4.1) g/dL Albumin/Globulin Ratio 1.5 (1.0-2.8) Blood Type Antibody Screen 07/28/19 Range/Units 10:55 WBC (4.5-11.0) X10^3/uL RBC (4.0-5.2) X10^6/uL Hgb (12.0-16.0) g/dL Hct (36-46) % MCV (80-100) fL MCH (26-34) PG MCHC (30-36) % RDW (11.6-14.8) % Plt Count (150-400) X10^3/uL Neut % (Auto) (50-75) % Lymph % (Auto) (25-40) % [place] % (Auto) (3-14) % Eos % (Auto) (2-4) % Baso % (Auto) (0-2) % Neut # (Auto) (2103-5766) /uL Lymph # (Auto) (3608-9391) /uL [place] # (Auto) (0-900) /uL Eos # (Auto) (0-450) /uL Baso # (Auto) (0-100) /uL PT (10.1-12.7) SECONDS INR (0.9-1.3) APTT (26.4-36.2) SECONDS Sodium (137-145) mmol/L Potassium (3.4-5.1) mmol/L Chloride (98-107) mmol/L Carbon Dioxide (22-32) mmol/L BUN (7-17) mg/dL Creatinine (0.52-1.04) mg/dL Estimated GFR (>60) mL/min BUN/Creatinine Ratio (6-22) Glucose (80-110) mg/dL Calcium (8.4-10.2) mg/dL Total Bilirubin (0.2-1.3) mg/dL AST (14-36) IU/L ALT (<35) IU/L Alkaline Phosphatase (38-126) U/L Total Protein (6.3-8.2) g/dL Albumin (3.5-5.0) g/dL Globulin (1.7-4.1) g/dL Albumin/Globulin Ratio (1.0-2.8) Blood Type A Positive Antibody Screen Negative Urine Dip Bedside Urine Glucose Negative Bedside Urine Bilirubin - Negative Bedside Urine Ketone - Negative Urine Specific [place] 1.015 Bedside Urine Occult Blood +/- Bedside Urine pH 6.0 Bedside Urine Protein +/- 15 Bedside Urine Urobilinogen - Negative Bedside Urine Nitrite - Negative Bedside Urine Leukocytes - Negative Esterase Imaging Data CT scan - abdomen/pelvis: Radiologist's Impression: IMPRESSION: 1. Acute descending and sigmoid colitis. No findings to suggest perforation, abscess, or pneumatosis. This finding was discussed with Dr. Vaughan at 11:33 AM. 2. Normal appendix. 3. Large fibroid uterus. 4. Probable fundoplication. Please correlate with surgical history. If there is no history of gastric surgery, gastric mass should be considered in the differential diagnosis. Dictated by: Diamond Ahdikari M.D. on 07/28/2019 at 11:29 MDM Narrative Medical decision making narrative: 73-year-old woman presents with bright red blood per rectum, leukocytosis, left lower quadrant pain CT scan consistent with sigmoid and descending colitis without significant evidence to suggest diverticulitis. No abscesses. With the dehydration and mild amount of blood loss that the patient has had she is slightly orthostatic. She took have a Vicodin this morning has not had another stool since then. They do have well water as well as cats at home and do have the well water checked regularly. She has not yet provided to stool sample to look for infectious etiologies to explain the colitis. There is no evidence of sepsis or acute surgical abdomen at this time. Until stool sample is obtained will not move forward with IV antibiotics. Will continue with IV hydration. She is beginning to feel hungry so will allow some liquids in proceed to solids if she is able to tolerate that she may be able to be discharged sooner rather than later but I believe a hospital stay to make sure there is no additional GI bleeding, no developing peritonitis and to further characterize the source of her colitis is warranted at this time. Of note, CT scan reading suggests an abnormal gastrum. She has not had a fundoplication. This incidental CT finding may need additional outpatient workup 1354 Case and findings are reviewed with Dr. Pastor. She accepts patient for admission to the hospitalist service Discharge Plan Departure Prescriptions: No Action medroxyprogesterone 2.5 MG tablet 2.5 mg PO QDAY Qty: 0 RF: 0 diclofenac sodium [Voltaren] 1 % gel 1 ashlie Topical QDAYP PRN (Reason: Pain) Qty: 0 RF: 0 lisinopril-hydrochlorothiazide 10-12.5 mg Tablet 1 tab PO DAILY RF: 0 gabapentin 600 mg PO BID RF: 0 celecoxib PO RF: 0 hydrocodone-acetaminophen 5-325 mg tablet 0.5 tab PO Q4H PRNRF: 0 estradiol PO DAILY RF: 0
[2019-07-28 11:26] LABS: INR 1.1 (0.9-1.3); Prothrombin Time 12.1 SECONDS (10.1-12.7)
[2019-07-28 11:27] LABS: Add Manual Diff / Slide Review NO; Basophils Absolute Auto 100 /uL (0-100); Eosinophils Absolute Auto 0 /uL (0-450); Eosinophils Percent Auto 0.1 % (2-4); Hematocrit 38.5 % (36-46); Hemoglobin 12.6 g/dL (12.0-16.0); Lymphocytes Absolute Auto 1000 /uL (1100-4500); Lymphocytes Percent Auto 6.2 % (25-40); Mean Corpuscular HGB Conc 32.7 % (30-36); Mean Corpuscular Volume 82.5 fL (80-100); Monocytes Absolute Auto 800 /uL (0-900); Monocytes Percent Auto 5.2 % (3-14); Neutrophils Absolute Auto 13600 /uL (1500-7000); Neutrophils Percent Auto 87.5 % (50-75); Platelet Count 299 X10^3/uL (150-400); Red Blood Cell Count 4.67 X10^6/uL (4.0-5.2); Red Cell Distribution Width 14.9 % (11.6-14.8); White Blood Cell Count 15.5 X10^3/uL (4.5-11.0)
[2019-07-28 11:28] LABS: PTT Partial Thromboplastin Tim 28 SECONDS (26.4-36.2)
[2019-07-28 11:31] LABS: Alanine Aminotransferase 14 IU/L (<35); Albumin 4.3 g/dL (3.5-5.0); Albumin Globulin Ratio 1.5 (1.0-2.8); Alkaline Phosphatase 73 U/L (38-126); Aspartate Aminotransferase 23 IU/L (14-36); Bilirubin Total 0.7 mg/dL (0.2-1.3); Blood Urea Nitrogen 14 mg/dL (7-17); Calcium 9.4 mg/dL (8.4-10.2); Carbon Dioxide 27 mmol/L (22-32); Chloride 101 mmol/L (98-107); Estimated Glomerular Filt Rate > 60.0 mL/min (>60); Globulin 2.8 g/dL (1.7-4.1); Glucose 137 mg/dL (80-110); HEMOLYSIS < 15 (0-50); Potassium 3.7 mmol/L (3.4-5.1); Sodium 137 mmol/L (137-145); Total Protein 7.1 g/dL (6.3-8.2)
--- NOTE | 2019-07-28 11:58 | DI.CT.S_ITS ---
PROCEDURE: CT ABDOMEN PELVIS W CON INDICATIONS: left lower quadrant pain, leukocytosis TECHNIQUE: After the administration of intravenous contrast, 5 mm thick sections acquired from the diaphragm to the symphysis. 5 mm coronal and sagittal reformats were acquired. For radiation dose reduction, the following was used: automated exposure control, adjustment of mA and/or kV according to patient size. COMPARISON: [facility], CT, CT KIDNEY URETER BLADDER (KUB), 04/30/2019, 12:07. FINDINGS: Image quality: Excellent. ABDOMEN: Lung bases: Lung bases are clear. Heart size is normal. Solid organs: Liver is normal in size and enhancement. A circumscribed low density cystic lesion is present within the anterior aspect of the right hepatic lobe which likely represents a small hepatic cyst. Gallbladder is unremarkable. Biliary system is non dilated. Pancreas is atrophic Spleen is normal in size and enhancement. No adrenal nodules. Kidneys demonstrate normal size and enhancement, without hydronephrosis. Peritoneum and bowel: Patient is likely status post fundoplication procedure. The small bowel demonstrates normal caliber and wall thickness. The appendix is thin walled. The ascending and transverse colon demonstrate normal caliber and wall thickness. There is circumferential wall thickening of the descending colon and the proximal sigmoid colon with pericolonic fat stranding. No pneumatosis or pneumoperitoneum. No free fluid. Nodes and vessels: No retroperitoneal or mesenteric adenopathy by size criteria. Aorta and inferior vena cava are normal in size. Miscellaneous: No ventral hernias. PELVIS: Genitourinary: Bladder wall thickness is normal. A homogeneously enhancing 12.4 x 9.0 x 13.4 cm posterior left uterine fibroid is redemonstrated. Probable small fibroids are also likely present within the myometrium. Miscellaneous: No inguinal hernias or adenopathy. Bones: No suspicious bony lesions. No vertebral body compression fractures. Posterior lumbar fixation hardware is grossly intact. IMPRESSION: 1. Acute descending and sigmoid colitis. No findings to suggest perforation, abscess, or pneumatosis. This finding was discussed with Dr. Vaughan at 11:33 AM. 2. Normal appendix. 3. Large fibroid uterus. 4. Probable fundoplication. Please correlate with surgical history. If there is no history of gastric surgery, gastric mass should be considered in the differential diagnosis. Dictated by: Diamond Adhikari M.D. on 07/28/2019 at 11:29 Approved by: Diamond Adhikari M.D. on 07/28/2019 at 11:37
[2019-07-28] MEDS: SODIUM CHLORIDE 0.9% 1,000 ML 1000 ML IV (13:00)
[2019-07-28 13:41] VITALS: BP 131/78; PULSE 79; RESP 12; O2SAT 98
[2019-07-28 14:00] VITALS: BP 119/68; PULSE 80; RESP 12; O2SAT 98
[2019-07-28 16:22] LABS: Lactate (Lactic Acid) 1.6 mmol/L (0.7-2.1)
[2019-07-28 16:35] VITALS: BP 145/81; PULSE 63; RESP 17; TEMP 36.9; O2SAT 100
[2019-07-28 16:42] VITALS: BMI 149.7
--- NOTE | 2019-07-28 17:32 | P.HP_ITS ---
History of Present Illness History of Present Illness Date Patient Seen: 07/28/19 Time Patient Seen: 16:00 Chief complaint: abdominal pain/ bleeding Narrative: Enrique Cantor is a 72-year-old female with a history of lower extremity neuropathy and hypertension presents today with a 2 day history of bloody diarrhea. She stated that she had significant abdominal pain, pointing to her right epigastric area. She had diarrhea yesterday it was bloody this morning she did have nausea last night through per dinner, and she was nauseous again this morning. She states that she would feel like she had to have urgent bowel movement and would not have any significant amount of stool but had diarrhea that was thick brown with blood. She denies fever but stated that she had sweats and that her temperature was 99? on admission. Denies chest pain, shortness of breath, or dysuria. Of note the patient is scheduled for a partial hysterectomy later this month to remove a large fibroid and Dr. Johnson is her BOOMBOAT OPERATOR. She states that she had a an ovarian tumor removed at the age of 54. She states that she has her appendix. Patient History Medical History Back pain (Acute) GERD (gastroesophageal reflux disease) (Acute) HTN (hypertension) (Acute) Neck pain (Acute) Ovarian tumor (Acute) ARGENIS (stress urinary incontinence, female) (Acute) Urgency incontinence (Acute) Surgical History Hx of arthroscopy of left knee (Acute 12/09/15) Hx of laminectomy (Acute) Hx of repair of right rotator cuff (Acute) S/P arthroscopy of right shoulder (Acute) Status post cataract extraction of both eyes with insertion of intraocular lens (Acute ~2017) Family & Social History Family History (Updated 07/28/19 @ 17:39 by UVALDO Jenkins) Mother Cancer Hypertension Father Diabetes mellitus Social History: household members spouse Prior Living Arrangements House Safety & Behavioral: Feels Safe in Current Yes Environment Been Physically Hurt or No Threatened By a Person Suicidal Ideation Description None Suicide Plan Description No Plan Tobacco & Substance use: Smoking Status Never smoker alcohol intake current alcohol intake frequency holiday/special occasion Substance Use Type does not use Meds Home Medications and Allergies Home Medications Medication Instructions Recorded Confirmed Type diclofenac sodium [Voltaren] 1 ashlie TOPICAL QDAYP PRN #0 06/27/16 07/28/19 History celecoxib 200 mg PO DAILY 12/22/17 07/28/19 History gabapentin 600 mg PO BID 12/22/17 07/28/19 History estradiol 0.5 mg PO DAILY 07/28/19 07/28/19 History hydrocodone-acetaminophen 0.5 tab PO Q6HR 07/28/19 07/28/19 History lisinopril-hydrochlorothiazide 1 tab PO DAILY 07/28/19 07/28/19 History medroxyprogesterone 2.5 mg PO DAILY 07/28/19 07/28/19 History Allergies Allergy/AdvReac Type Severity Reaction Status Date / Time epinephrine [EPINEPHRINE] Allergy Severe I WENT Verified 07/25/19 13:33 INTO SHOCK, TACHYCARDIA adhesive [ADHESIVE] Allergy Intermediate STERI-STRIP: Verified 07/25/19 13:33 RASH,INFECTION Penicillins [PENICILLINS] Allergy Intermediate RASH Verified 07/25/19 13:33 oxybutynin AdvReac Severe severe Verified 07/25/19 13:33 oral blisters, lip swelling Review of Systems Review of Systems ROS: Yes All systems reviewed with the patient and are negative except as otherwise documented Exam Vital Signs (past 8 hours): - 07/28/19 10:20 07/28/19 13:41 07/28/19 14:00 Temperature 98.6 F Pulse Rate 96 H 79 80 Respiratory Rate 16 12 12 Blood Pressure 159/76 H Blood Pressure [Left Arm] 131/78 119/68 Pulse Oximetry 99 98 98 07/28/19 16:35 Temperature 98.4 F Pulse Rate 63 Respiratory Rate 17 Blood Pressure 145/81 H Blood Pressure [Left Arm] Pulse Oximetry 100 Oxygen Delivery Method Room Air Narrative Exam Narrative: Gen: Alert, oriented, well-developed 73 y.o. female, states feels more comfortable now than when she came in HEENT: normocephalic, atraumatic, conjunctiva clear, sclera non-icteric, oral mucosa pink and moist Neck: supple, full ROM Resp: Lungs CTA, non-labored breathing CV: RRR, no murmur or rubs Abd: soft, hyperactive bowel tones, tender in the right upper and lower quadrants Skin: no lesions or rashes, dry and intact Neuro: Alert and oriented X 4 w/no focal deficits Extremities: moves all 4 extremities, is ambulatory, negative Yuki?s sign Psyche: normal mood and affect. Objective Labs Result Diagrams: 07/28/19 10:55 07/28/19 10:55 Labs: Laboratory Results - last 24 hr 07/28/19 07/28/19 07/28/19 10:55 10:55 10:55 WBC 15.5 H RBC 4.67 Hgb 12.6 Hct 38.5 MCV 82.5 MCH 27.0 MCHC 32.7 RDW 14.9 H Plt Count 299 Neut % (Auto) 87.5 H Lymph % (Auto) 6.2 L [place] % (Auto) 5.2 Eos % (Auto) 0.1 L Baso % (Auto) 1.0 Neut # (Auto) 99013 H Lymph # (Auto) 1000 L [place] # (Auto) 800 Eos # (Auto) 0 Baso # (Auto) 100 PT 12.1 INR 1.1 APTT 28 Sodium 137 Potassium 3.7 Chloride 101 Carbon Dioxide 27 BUN 14 Creatinine 0.70 Estimated GFR > 60.0 BUN/Creatinine Ratio 20.0 Glucose 137 H Lactate Calcium 9.4 Total Bilirubin 0.7 AST 23 ALT 14 Alkaline Phosphatase 73 Total Protein 7.1 Albumin 4.3 Globulin 2.8 Albumin/Globulin Ratio 1.5 Blood Type Antibody Screen 07/28/19 07/28/19 10:55 10:55 WBC RBC Hgb Hct MCV MCH MCHC RDW Plt Count Neut % (Auto) Lymph % (Auto) [place] % (Auto) Eos % (Auto) Baso % (Auto) Neut # (Auto) Lymph # (Auto) [place] # (Auto) Eos # (Auto) Baso # (Auto) PT INR APTT Sodium Potassium Chloride Carbon Dioxide BUN Creatinine Estimated GFR BUN/Creatinine Ratio Glucose Lactate 1.6 Calcium Total Bilirubin AST ALT Alkaline Phosphatase Total Protein Albumin Globulin Albumin/Globulin Ratio Blood Type A Positive Antibody Screen Negative Assessment & Plan Assessment & Plan narrative: Enrique Cantor will be held overnight for further evaluation of presumed lower GI bleeding. 1. Presumptive Lower GI bleed, rule out ischemic versus infectious colitis with a WBC of 15.5 -lactate is pending -hemoglobin and hematocrit q.6 hours -I will start the patient on IV Flagyl 500 mg q.i.d. -Recommend surgical consult in the morning as well as notifying Dr. Johnson of her admission here -clear diet -she received a 1 L bolus in the ED, she has a stable blood pressure and heart rate, it is unlikely that she is septic 2. Essential hypertension - Continue home dose of lisinopril 10 mg p.o. daily 3. Chronic back pain -patient had been taking Celebrex 200 mg p.o. daily this will be held as this is increasing her risk or possibly the cause of her bleeding -she will continue on hydrocodone/APAP 5/500 q.6 hours as needed for pain FEN: NS at 100 mL/hour, clear liquid diet, chemistries in the am Patient is placed into observation as her stay is not likely to exceed 2 midnights. VTE Prophylaxis: Bilateral SCDs, pharmacological VTE contraindicated due to bleeding Medications reconciled: Yes Disposition: Probable discharged home with outpatient follow-up Code Status: Full code Quality VTE Deep Vein Thrombosis/Pulmonary Embolism Present on Admission: No
[2019-07-28] MEDS: ONDANSETRON 4 MG/2 ML INJ IV (18:04)
[2019-07-28] MEDS: HYDROCODONE/ACET 5/325 TABLET 1 TAB PO ×2 (18:04→22:34)
[2019-07-28] MEDS: SODIUM CHLORIDE 0.9% 1,000 ML 100 ML IV (18:06)
[2019-07-28 18:39] LABS: Lactate (Lactic Acid) 1.3 mmol/L (0.7-2.1)
[2019-07-28] MEDS: GABAPENTIN 600 MG TABLET PO (20:39)
[2019-07-28 20:41] VITALS: BP 127/93; PULSE 71; RESP 16; TEMP 37.6; O2SAT 100
[2019-07-29 00:10] VITALS: BP 120/68; PULSE 65; RESP 16; TEMP 36.4; O2SAT 99
[2019-07-29] MEDS: SODIUM CHLORIDE 0.9% 1,000 ML 100 ML IV ×2 (04:49→13:53)
[2019-07-29 05:00] VITALS: BP 132/77; PULSE 70; RESP 18; TEMP 36.3; O2SAT 97
[2019-07-29 06:17] LABS: Add Manual Diff / Slide Review NO; Basophils Absolute Auto 0 /uL (0-100); Basophils Percent Auto 0.2 % (0-2); Eosinophils Absolute Auto 100 /uL (0-450); Eosinophils Percent Auto 1.4 % (2-4); Hematocrit 31.9 % (36-46); Hemoglobin 10.8 g/dL (12.0-16.0); Lymphocytes Absolute Auto 1700 /uL (1100-4500); Lymphocytes Percent Auto 16.9 % (25-40); Mean Corpuscular HGB Conc 33.8 % (30-36); Mean Corpuscular Hemoglobin 27.6 PG (26-34); Mean Corpuscular Volume 81.7 fL (80-100); Monocytes Absolute Auto 700 /uL (0-900); Monocytes Percent Auto 7.5 % (3-14); Neutrophils Absolute Auto 7200 /uL (1500-7000); Platelet Count 249 X10^3/uL (150-400); Red Blood Cell Count 3.91 X10^6/uL (4.0-5.2); Red Cell Distribution Width 14.9 % (11.6-14.8); White Blood Cell Count 9.8 X10^3/uL (4.5-11.0)
[2019-07-29 06:28] LABS: Blood Urea Nitrogen 7 mg/dL (7-17); Calcium 8.4 mg/dL (8.4-10.2); Carbon Dioxide 26 mmol/L (22-32); Chloride 108 mmol/L (98-107); Estimated Glomerular Filt Rate > 60.0 mL/min (>60); Glucose 105 mg/dL (80-110); HEMOLYSIS < 15 (0-50); Potassium 3.7 mmol/L (3.4-5.1); Sodium 139 mmol/L (137-145)
--- NOTE | 2019-07-29 06:46 | PC.NURSE ---
Patient has no complaints of pain or nausea this shift. VSS. Patient has had no BM's on this shift and still needs GI panel collection. Patient is on clear liquid diet. No antibiotics to be started until GI panel is collected.
[2019-07-29 07:30] VITALS: BP 135/76; PULSE 75; RESP 16; TEMP 36.8; O2SAT 100
[2019-07-29] MEDS: lisinopriL 10 MG TABLET PO (08:24)
--- NOTE | 2019-07-29 09:05 | PC.NURSE ---
Addendum entered by Sena Castellanos R.N. 07/29/19 14:35: Back from Barium swallow study. This radio news writer evaluated her L AC IV and it's still itchy, erythemic and painful to touch/flush. Reached out to ED RN to assist with placement of new line. IVF and abx remain paused until we have a new line in. Addendum entered by Sena Castellanos R.N. 07/29/19 13:57: Off floor to barium swallow study at this time. C/O IV site L AC sore and a bit itchy and does have some erythema to surrounding skin. Patient reports she does have an allergy to adhesives, but she was also getting her first dose of IV Levaquin at the time also. Fluids and abx paused for patient to leave the floor. Will re-evaluate IV when she returns. Addendum entered by Sena Castellanos R.N. 07/29/19 09:25: Moved her bowels, but urine and liquid stool mixed in the hat so unable to collect stool sample. Stool appeared liquid, brown, no ranjeet blood noted. Patient denied any blood with wiping. Sitting at edge of bed per her choice, agrees to call with needs/concerns. Light in reach. Addendum entered by Sena Castellanos R.N. 07/29/19 09:12: Up to BR, voided but no BM. This RN (and my FRAME GATE MORTISER OPERATOR) are both aware that we need to collect stool for GI panel when possible, hat in toilet. Original Note: Shift summary: Alert and oriented X3. Indep in room with IV pole, steady and safely manages on her own. Denies dizziness/lightheadedness. Reports a lot of gas that's causing some pain in her belly, rates 5/10 and wants to take 1/2 tab Vicodin for the same. Abd soft, nontender. BT+ X4, Flatus+. Patient reports feeling mildly bloated. Slightly queasy, denies nausea. Tolerating clear liquids but not much of an appetite. C/O headache but states it's improving as morning goes along. Lungs CTA, HRR. VSS. Able to make needs known and calls appropriately. Light and belongings within reach.
[2019-07-29] MEDS: HYDROCODONE/ACET 5/325 TABLET 1 TAB PO ×4 (09:13→21:47)
[2019-07-29 11:36] VITALS: BP 118/72; PULSE 69; RESP 16; TEMP 37.2; O2SAT 97
--- NOTE | 2019-07-29 12:13 | CM.DANOTE ---
DCP/Assessment: Received chart. Patient is a 73yrold female admitted to [facility] with abdominal pain and bleeding. PCP is Dr. Jahaira Odell. Primary payor is 1)Medicare 2)[facility]. Met with patient explained CM/SW role. Patient alert and oriented at time of visit. Patient reports that she is I in all ADL's and hopes to go home today. Patient having surgery at [facility]. in 4wks with Dr. Mancia. Patient told she may need colonoscopy. Patient hopeful that this can be done as outpatient. No identified d/c planning concerns at this time. P: Home when medically stable. ALEXSANDRA Jones Discharge Planning/Care Management CM Discharge Assessment Start: 07/29/19 12:10 Freq: Status: Active Protocol: Document 07/29/19 12:10 KJS (Rec: 07/29/19 12:13 KJS [id number]) Discharge Planning Assessment Assigned Inside Sales Coordinator ALEXSANDRA Jones Contact Information Jm Cantor # [phone] Advance Directives? No Advance Directives on File No History Provided By Patient,Medical Record Prior Living Arrangements House Household Members spouse Type of transporation used prior to Drives own vehicle admit Independent with ADL's Yes Is patient alert and oriented? Yes Caregiver for Another No Barriers to Discharge No Discharge Plan Home Transportation Arrangement Family to provide transport. Referrals Initiated None needed Whiteboard Updated in Patient Room with Yes name and ext. # of Inside Sales Coordinator Review Status In Process Next Review Type Continued Stay Review
--- NOTE | 2019-07-29 12:31 | DI.RAD.S_ITS ---
PROCEDURE: FL BARIUM SWALLOW INDICATIONS: f/u gastric mass COMPARISON: None. FINDINGS: Function: There is esophageal dysmotility and decreased clearance. No elicited gastroesophageal reflux. Morphology: Esophageal irregularity in the lower third, just above the GE junction. There is narrowing in this region, and mucosal prominence Limited images of the stomach demonstrate normal appearance. IMPRESSION: Slight distal esophageal segmental narrowing, and mucosal irregularity. Early neoplasm and/or stricture cannot be excluded. Recommend further evaluation with dedicated upper endoscopy Esophageal dysmotility Dictated by: Alexis Whatley M.D. on 07/29/2019 at 17:39 Approved by: Alexis Whatley M.D. on 07/29/2019 at 17:43
[2019-07-29] MEDS: levoFLOXacin 500 MG/100 ML PIGGYBACK 100 MG IV (13:02)
[2019-07-29] MEDS: ACETAMINOPHEN 325 MG TABLET 650 MG PO (13:03)
[2019-07-29 15:20] VITALS: BP 144/83; PULSE 73; RESP 17; TEMP 36.8; O2SAT 100
[2019-07-29] MEDS: metroNIDAZOLE 500 MG/100 ML PIGGYBACK 100 MG IV ×2 (16:27→23:19)
--- NOTE | 2019-07-29 16:42 | P.PN_ITS ---
Subjective Subjective Date Patient Seen: 07/29/19 Interval history: Patient presented yesterday with tenesmus crampy abdominal pain and rectal bleeding. She reports she continues to feel some bloating and crampy abdominal pain but no further bleeding. Exam Vital Signs (past 8 hours): - 07/29/19 11:36 07/29/19 15:20 Temperature 99 F 98.3 F Pulse Rate 69 73 Respiratory Rate 16 17 Blood Pressure 118/72 144/83 H Pulse Oximetry 97 100 Oxygen Delivery Method Room Air Oxygen Flow Rate 0 Narrative Exam Narrative: Pleasant female resting comfortably in no obvious distress Lungs: Clear to auscultation Cardiac exam: Regular rate and rhythm normal S1-S2 Abdomen: Soft, mildly tender in the right lower quadrant, mildly tender in the midepigastric and more tender in the left lower quadrant, no palpable masses, no rebound tenderness, no board-like rigidity. Extremities: No edema Objective Labs Result Diagrams: 07/29/19 05:52 07/29/19 05:52 Labs: Laboratory Results - last 24 hr 07/28/19 07/29/19 07/29/19 18:17 05:52 05:52 WBC 9.8 RBC 3.91 L Hgb 10.8 L Hct 31.9 L MCV 81.7 MCH 27.6 MCHC 33.8 RDW 14.9 H Plt Count 249 Neut % (Auto) 74.0 Lymph % (Auto) 16.9 L [place] % (Auto) 7.5 Eos % (Auto) 1.4 L Baso % (Auto) 0.2 Neut # (Auto) 7200 H Lymph # (Auto) 1700 [place] # (Auto) 700 Eos # (Auto) 100 Baso # (Auto) 0 Sodium 139 Potassium 3.7 Chloride 108 H Carbon Dioxide 26 BUN 7 Creatinine 0.70 Estimated GFR > 60.0 BUN/Creatinine Ratio 10.0 Glucose 105 Lactate 1.3 Calcium 8.4 Assessment & Plan Assessment & Plan narrative: Impression 1. Hematochezia -patient presents with abrupt onset of crampy abdominal pain, bright red blood per rectum, and gas. -CT scan confirms acute colitis -no further stool to sin to rule out infectious: -suspect probable acute ischemic colitis -patient will be started on levofloxacin and Flagyl -colonoscopy as an outpatient after the colitis has resolved 2. Abnormal gastric fold on CT scan -will obtain upper GI barium study -patient to have outpatient EGD at the time of her colonoscopy for further evaluation 3. Hypertension -continue lisinopril -will hold hydrochlorothiazide at this time Anticipate discharge home tomorrow if the patient has no further crampy abdominal pain or no further rectal bleeding Quality VTE Deep Vein Thrombosis/Pulmonary Embolism Present on Admission: No
[2019-07-29 19:39] VITALS: BP 128/73; PULSE 72; RESP 16; TEMP 36.4; O2SAT 99
[2019-07-29] MEDS: GABAPENTIN 600 MG TABLET PO (21:36)
[2019-07-30 00:25] VITALS: BP 123/73; PULSE 65; RESP 21; TEMP 36.7; O2SAT 97
[2019-07-30] MEDS: SODIUM CHLORIDE 0.9% 1,000 ML 100 ML IV (03:43)
[2019-07-30] MEDS: metroNIDAZOLE 500 MG/100 ML PIGGYBACK 100 MG IV (05:32)
[2019-07-30 05:45] VITALS: BP 124/64; PULSE 71; RESP 20; TEMP 37.1; O2SAT 98
--- NOTE | 2019-07-30 06:29 | PC.NURSE ---
Addendum entered by Yary Mendieta R.N. 07/30/19 07:00: Patient was complaining of nausea at 0655, patient medicated w/ 4 mg Zofran. Patient also had small loose bowel movement. Original Note: Patient did not have pain on this shift. Patient has bloating, no BM's on this shift, bowel tones active in all 4 quadrants. Patient denies nausea. VSS. Patient complains of feeling an itch in her vaginal area, she feels like she may be getting a fungal infection from Antibiotic use. Salvador BAILON notified and I asked for some Diflucan for the patient.
[2019-07-30] MEDS: FLUCONAZOLE 150 MG TABLET PO (06:38)
[2019-07-30] MEDS: ONDANSETRON 4 MG/2 ML INJ IV (06:53)
[2019-07-30 07:30] VITALS: BP 141/88; PULSE 82; RESP 17; TEMP 37.4; O2SAT 100
[2019-07-30] MEDS: HYDROCODONE/ACET 5/325 TABLET 1 TAB PO (07:33)
[2019-07-30] MEDS: lisinopriL 10 MG TABLET PO (07:34)
--- NOTE | 2019-07-30 08:10 | PC.NURSE ---
Addendum entered by Sena Castellanos R.N. 07/30/19 11:22: Discharge: Feeling better with regards to pain and nausea, anxious to get home. IV dc'd intact. Reviewed d/c info and instructions thoroughly with patient. Instructed to f/u with PCP MERY. She has already scheduled her appt to move forward with outpatient EDG. Instructed re: advancing diet as tolerated. Reviewed s/sx with which to call MD or return to hospital. 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 All personal belongings sent with patient at d/c. Verbalized understanding of instructions, all questions answered. Wheeled out to private vehicle via wheelchair. Addendum entered by Sena Castellanos R.N. 07/30/19 08:36: Spoke with Dr Pastor and showed her a sample of patient's stool. Let her know that stool was guaiac negative and asked if she wanted stool sent to lab for GI panel. Per Dr Pastor, no need to send sample at this time. Original Note: Shift summary: Alert and oriented X3. Up indep in room, gait steady, manages IV pole safely. C/O 4/10 crampy abd pain and nausea at bedside report. Had already been given Zofran for nausea. This play writer medicated with 1 tab Vicodin for pain. Yellowish, thick pasty bowel movement this morning. Guaiac negative. Denies any bleeding with wiping. Waiting to check with MD Pastor to see if she wants sample sent for GI panel. BT+ X4, hypoactive upper quadrants, hyperactive lower quadrants. Abdomen soft, flatus+. Denies feeling feverish/chills or body aches. Reports improvement in both nausea and abd pain at reassessment. Advanced to full liquid diet for breakfast, patient without much of an interest in food at the moment. Resting in bed, able to make needs known. Call light and belongings within reach.
--- NOTE | 2019-07-30 08:48 | P.DS_ITS ---
History of Present Illness History of Present Illness Date Patient Seen: 07/30/19 Chief complaint: abdominal pain/ bleeding Narrative: fartun Cantor is a 72-year-old female with a history of lower extremity neuropathy and hypertension presents today with a 2 day history of bloody diarrhea. She stated that she had significant abdominal pain, pointing to her right epigastric area. She had diarrhea yesterday it was bloody this morning she did have nausea last night through per dinner, and she was nauseous again this morning. She states that she would feel like she had to have urgent bowel movement and would not have any significant amount of stool but had diarrhea that was thick brown with blood. She denies fever but stated that she had sweats and that her temperature was 99? on admission. Denies chest pain, shortness of breath, or dysuria. 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 She states that she had a an ovarian tumor removed at the age of 54. She states that she has her appendix. Discharge Providers Provider Date of admission: 07/28/19 15:56 Discharge Date: 07/30/19 Primary care physician: Jahaira Odell MD Discharge provider: Gisel Pastor MD Summary Hospital Course Discharge Diagnosis: 1. Hematochezia 2. Probable ischemic colitis 3. Gastric fullness concern for probable gastric carcinoma. The patient had an abnormality on CT of the abdomen as well as upper GI 4. Hypertension Hospital Course: Patient was admitted to the hospital for crampy abdominal pain and bloody stool. CT of the abdomen and pelvis demonstrated the following findings: Acute descending and sigmoid colitis. No findings to suggest perforation, abscess, or pneumatosis. This finding was discussed with Dr. Vaughan at 11:33 AM. 2. Normal appendix. 3. Large fibroid uterus. 4. Probable fundoplication. Please correlate with surgical history. If there is no history of gastric surgery, gastric mass should be considered in the dif ferential diagnosis. The patient was admitted to the hospital and given IV levofloxacin and Flagyl. She continued to have crampy abdominal pain which improved. She had no further rectal bleeding. The patient had an upper GI barium swallow to evaluate the gastric mass. She had narrowing at the esophageal gastric junction. Recommendations were to pursue upper endoscopy to rule out the possibility of a gastric mass. This was explained to the patient. It she should have an outpatient EGD and colonoscopy. The patient has tolerated a clear liquid diet. She is anxious to go home. As she has had no further bloody diarrhea and cramping has essentially resolved she was deemed appropriate for discharge with plans to follow-up with her primary care provider Dr. avila as an outpatient. Status at Discharge Cognitive/behavioral status at discharge: oriented Functional status at discharge: independent ambulation Overall status at discharge: patient is back to baseline Time Spent with Patient Time spent: Less than 30 minutes Exam Vital Signs (past 8 hours): - 07/30/19 05:45 07/30/19 07:30 Temperature 98.7 F 99.3 F Pulse Rate 71 82 Respiratory Rate 20 17 Blood Pressure 124/64 141/88 H Pulse Oximetry 98 100 Oxygen Delivery Method Room Air Oxygen Flow Rate 0 Narrative Exam Narrative: Pleasant female in no acute distress Lungs: Clear to auscultation Cardiac exam: Regular rate and rhythm normal S1-S2 Abdomen: Scaphoid, soft, hyperactive bowel tones, no board-like rigidity, no palpable masses, no rebound tenderness Extremities: Trace edema Objective Labs Result Diagrams: 07/29/19 05:52 07/29/19 05:52 Discharge Plan Discharge Plan Discharge Problem: Colitis with rectal bleeding Patient Disposition: Home Discharge orders & Medications Prescriptions: New levofloxacin 500 mg tablet 500 mg PO DAILY Qty: 10 RF: 0 metronidazole [Flagyl] 500 mg tablet 500 mg PO Q8H Qty: 30 RF: 0 Continued diclofenac sodium [Voltaren] 1 % gel 1 ashlie Topical QDAYP PRN (Reason: Pain) Qty: 0 RF: 0 estradiol 0.5 mg tablet 0.5 mg PO DAILY RF: 0 hydrocodone-acetaminophen 5-325 mg tablet 0.5 tab PO Q6HR RF: 0 lisinopril-hydrochlorothiazide 10-12.5 mg tablet 1 tab PO DAILY RF: 0 medroxyprogesterone 2.5 mg tablet 2.5 mg PO DAILY RF: 0 gabapentin 600 mg PO BID RF: 0 celecoxib 200 mg PO DAILY RF: 0 Follow up/Referrals: Jahaira Odell MD [Primary Care Provider] - Diet/Activity/Treatments Diet: Diet as Tolerated Diet comment: on clear liquid diet, can advance as tolerated Activity: as tolerated Discharge Data Primary Care Provider: Jahaira Odell Attending Provider: Kitty Whatley Admit Date/Time: 07/28/19 15:56 Quality VTE Deep Vein Thrombosis/Pulmonary Embolism Present on Admission: No
== END 2019-07-30 11:27 | disposition home or self-care (01) ==
LOC: ED 15:00 → AC 15:57
PROVIDERS: Admitting Provider Nurse Practitioner Family; Emergency Provider Emergency Medicine; PCP Internal Medicine; Referring Provider Nurse Practitioner Family; Visit Provider Nurse Practitioner Family
DX: K62.5 Hemorrhage of anus and rectum (principal); R10.13 Epigastric pain; I10 Essential (primary) hypertension; R93.3 Abnormal findings on diagnostic imaging of other parts of digestive tract
CPT/HCPCS: 36415; 74177; 74220; 80048; 80053; 81003; 83605; 85025; 85610; 85730; 86850; 86900; 86901; 96361; 96365; 96366; 96367; 96375; 96376; 99284; G0378; J1956; J2405; Q9967

== ENCOUNTER 2019-08-07 06:40 | Day surgery (SDC) | payer MEDICARE, OTHER, SELFPAY ==
--- NOTE | 2019-08-07 | PATH_ITS ---
[facility] Accession Number: [id number] . 01 Material submitted: . PART A: duodenum - DUODENAL MASS PART B: esophagus, E-G Junction - GE JUNCTION PART C: gastrointestinal site - GASTRIC BIOPSY . 02 Diagnosis: A. Duodenal Mass: Superficial portions of duodenal mucosa with dilated lacteals, please see comment. Negative for dysplasia or malignancy. No definite mass identified. Additional levels through the block are non-contributory. . B. GE Junction: Squamocolumnar junctional mucosa with mucosal erosion, detached fragments of ulcer, and specialized intestinal metaplasia, consistent with Farmer's esophagus. Positive for intestinal metaplasia by Alcian blue stain. No fungal organisms identified by PAS stain. Negative for dysplasia and malignancy. . C. Gastric Biopsy: Portions of gastric antral and body-type mucosa with mild chronic gastritis. Negative for H. pylori organisms by immunohistochemistry studies. Negative for intestinal metaplasia. Negative for dysplasia and malignancy. [facility] 08/09/2019 1435 Local . 02 Comment: A. Dilated lacteals are not specific, but may be due to lymphangiectasia or indicative of an upstream or downstream lymphatic obstruction due to scar, inflammation, or neoplasm. . . 02 Electronically signed: . Tamera Villanueva MD, Pathologist NPI- [id number] . 01 Gross description: . Part A: DUODENAL MASS: Received in formalin is 1 fragment(s) of crook, soft tissue measuring 0.3 x 0.1 x 0.1 cm submitted entirely in 1 cassette(s) Part B: GE JUNCTION: Received in formalin are 4 fragment(s) of crook, soft tissue measuring 0.1 x 0.1 x 0.1 cm to 0.2 x 0.2 x 0.1 cm submitted entirely in 1 cassette(s) Part C: GASTRIC BIOPSY: Received in formalin are 4 fragment(s) of crook, soft tissue measuring 0.1 x 0.1 x 0.1 cm to 0.2 x 0.2 x 0.2 cm submitted entirely in 1 cassette(s) /[facility] 08/07/2019 2100 Local . 02 Microscopic: . B. An Alcian blue stain was performed in order to evaluate for intestinal metaplasia, and is positive. The control stain showed appropriate reactivity. A PAS stain was performed to evaluate for fungal organisms, and is negative. . C. An immunohistochemical stain was performed to evaluate for Helicobacter organisms and is negative. The control stain showed appropriate reactivity. . * This test was developed and its performance characteristics determined by [employer]. It has not been cleared or approved by the U.S. Food and Drug Administration. The FDA has determined that such clearance or approval is not necessary. This test is used for clinical purposes. It should not be regarded as investigational or for research. . 02 Pathologist provided ICD-10: K31.89, K22.70 . 02 CPT . 198278, 734407, 214740, 060611, [id number] Performed at: 01 [facility] [address] [facility], [place], [place] [id number] MD Luis Perez MD Phone: [phone] Performed at: 02 [facility] [address] [place], [place] [id number] MD Olivia Carbone MD Phone: [phone]
[2019-08-07 08:11] VITALS: BP 143/79; PULSE 77; RESP 16; TEMP 36.6; O2SAT 100; BMI 24.9
[2019-08-07] MEDS: SODIUM CHLORIDE 0.9% 1,000 ML 84 ML IV (08:15)
--- NOTE | 2019-08-07 08:40 | PM.PREOP ---
Pre-operative Note Interval Note History & Physical reviewed/Exam performed by Physician: Yes Changes to H&P: No ASA Class (for procedural sedation): II
[2019-08-07] MEDS: LIDOCAINE 4% SOLN 50 ML TOP (08:48)
[2019-08-07] MEDS: fentaNYL 250 MCG/5 ML INJ IV (08:49)
[2019-08-07] MEDS: MIDAZOLAM 5 MG/5 ML VIAL IV (08:50)
--- NOTE | 2019-08-07 09:18 | PM.OP.ENDO ---
Operative Date/Time/Diagnoses Date of procedure: 08/07/19 Time of procedure: 09:18 Pre-op diagnosis: Gastric mass Post-op diagnosis: same Procedure & Clinicians Study performed: Esophagoduodenoscopy Same procedure as scheduled: Yes Indications: 73-year-old female with an incidentally found gastric mass. Surgeon: Ke Chatterjee Procedure Notes SCOAP/Timeout: Performed Procedure in detail: Patient placed in left lateral decubitus position. Time out was performed. Procedural sedation was administered with Versed and Fentanyl. A bite block was placed. the scope was inserted into the mouth and advanced through the esophagus and into the stomach. The pylorus was intubated. In the 1st portion of the duodenum there was a mass of approximately 2 cm which was biopsied with forceps. Hemostasis was observed. Second portion of the duodenum was normal in appearance. The scope was retroflexed within the stomach and there was a moderate size hiatal hernia. There was great deal of submucosal fullness to the fundus. Several biopsies of the stomach/fundus were performed. The scope was then withdrawn into the esophagus and the GE junction was observed at 32 cm from the incisors. There was ulceration within the GE junction and multiple biopsies of the GE junction were then taken with the forceps. Hemostasis was observed. There was no intraluminal gastric mass but there was diffuse submucosal fullness within the gastric fundus. Stomach was desufflated and scope removed. Patient tolerated procedure well. Sedation minutes: 25 Findings: other findings (duodenal mass, submucosal fullness of the gastric fundus, ulcerations within the GE junction) Specimen(s): other (Duodenal mass, gastric fundus, GE junction) Complications: none Impression: Duodenal mass, GE ulcerations, Submucosal gastric fundic mass. Post-procedure Recommendations: Stop medication(s), Start medication(s) and Other recommendation (Will review biopsy pathology in office) Disposition: same day surgery
[2019-08-07 09:20] VITALS: BP 124/73; PULSE 79; RESP 14; TEMP 36.6; O2SAT 97
[2019-08-07 09:25] VITALS: BP 116/74; PULSE 90; RESP 16; O2SAT 96
[2019-08-07 09:30] VITALS: BP 124/74; PULSE 77; RESP 14; O2SAT 97
--- NOTE | 2019-08-07 09:35 | SUR.PHASEII ---
Dr. Chatterjee talking to pt and explaining her results to her.
[2019-08-07 09:36] VITALS: BP 129/79; PULSE 82; RESP 16; TEMP 36.5; O2SAT 97
[2019-08-07 09:50] VITALS: BP 126/71; PULSE 78; RESP 11; TEMP 36.7; O2SAT 97
--- NOTE | 2019-08-07 10:15 | SUR.PHASEII ---
Gave discharge instructions. Talked to him at length about her d/c and report per Dr. Chatterjee.
== END 2019-08-07 10:10 | disposition home or self-care (01) ==
PROVIDERS: PCP Internal Medicine; Referring Provider Surgery; Visit Provider Surgery
PROC: 0DJ08ZZ Inspection of Upper Intestinal Tract, Via Natural or Artificial Opening Endoscopic (ICD-10-PCS; CPT 43235; principal; 2019-08-07 08:45)
DX: K29.50 Unspecified chronic gastritis without bleeding (principal); K22.10 Ulcer of esophagus without bleeding; K21.9 Gastro-esophageal reflux disease without esophagitis; R68.81 Early satiety; I10 Essential (primary) hypertension
CPT/HCPCS: 43239; 99152; J2250; J3010

== ENCOUNTER → 2019-08-21 15:50 | Outpatient (CLI) | payer SELFPAY ==
[2019-07-28 16:42] VITALS: BMI 149.7
--- NOTE | 2019-08-21 | DI.NM.S_ITS ---
PROCEDURE: NM PET CT FUSION LIMITED AREA RADIOPHARMACEUTICAL: 13.1 mCi F-18 fluorodeoxyglucose IV. 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 A series of overlapping emission PET images was then obtained. The patient's pretest fasting blood glucose level as measured by glucometer was 89 mg/dl. The area imaged spanned from the skull base to the upper thighs. COMPARISON: [facility], CT, CT KIDNEY URETER BLADDER (KUB), 04/30/2019, 12:07. [facility], , US PELVIC COMPLETE, 08/20/2018, 15:29. [facility], US, US PELVIC COMPLETE, 02/26/2018, 14:42. [facility], MR, MR HIP RT WO CON, 01/15/2018, 14:08. [facility], MR, MR LUMBAR SPINE WO CON, 10/23/2017, 13:01. [facility], US, ABDOMEN COMPLETE, 04/08/2014, 10:43. [facility], CT, CT ABDOMEN PELVIS W CON, 07/28/2019, 11:06. [facility], RF, FL BARIUM SWALLOW, 07/29/2019, 12:57. FINDINGS: Head and neck: No soft tissue masses in the neck. No enlarged cervical or supraclavicular lymph nodes; no abnormal bria tracer uptake. Salivary and thyroid glands appear normal. Sinuses and mastoids are clear. Thorax: No enlarged mediastinal, hilar, or axillary lymph nodes. No abnormal bria tracer uptake. No acute pulmonary opacities. No pleural effusions or pneumothorax. Heart size is normal. No pericardial effusion. Abdomen and pelvis: No enlarged retroperitoneal or mesenteric lymph nodes. No abnormal bria tracer uptake. There is normal heterogeneous hepatic tracer uptake. Liver is normal in size, without focal masses. The spleen is normal in size. Gallbladder appears normal. Pancreas is normal in morphology. No adrenal nodules. Kidneys are normal in size, without nephrolithiasis, but mild hydronephrosis has developed at the central renal collecting system/renal pelvis with reference to prior CT scanning from 04/30/19. Small and large intestines are normal in caliber. Aorta and inferior vena cava are normal in size. No free fluid or air. No pelvic or inguinal adenopathy. Bladder wall thickness is normal. Note is again made of a large mass lesion contiguous with the posterior border of the uterus, homogeneous, and measuring up to 12.0 cm AP, 9.2 cm transverse and 16.4 cm craniocaudad on the most recent CT scanning 07/28/19 which represents a small interval increase volume of this mass with reference to prior CT scanning and MR scanning that partially included this mass from April of 2019 and December of 2017 respectively. This mass, however, shows no abnormal elevated internal isotope deposition. However, an eccentric anterior component of the pelvic abnormality has been interpreted as representing additional fibroids, seen on the right of midline at the upper margin of the mass. Within the superior border of this cluster of heterogeneous soft tissue there is abnormal isotope deposition with a maximal SUV of 3.5. Bones: No abnormal osseous tracer uptake. No lytic or blastic bony lesions. IMPRESSION: 1. There has been slow sequential enlargement of a large mass lesion at the posterior border of the uterus, ovaries sequence of studies to include prior hip MR imaging, and several CT scans, including the current PET CT scanning. 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 2. The mass effect from this large mass has further increased, producing a new finding of bilateral mild hydronephrosis with dilatation of the renal pelvis bilaterally in a pattern not previously seen by CT scanning. 3. At the anterior superior border of the large dominant mass is an area of lobulated soft tissue, previously thought to represent additional fibroids within the uterus. At the upper margin of this lobulated mass is an area of potentially malignant appearing isotope deposition with a maximal SUV of 3.5. This may represent malignant degeneration within a previously benign uterine fibroid but also conceivably could be produced by ischemic injury and reactive inflammatory change in an involuting fibroid. 4. No adenopathy or distant metastatic disease found. Dictated by: Javi Mann M.D. on 08/22/2019 at 9:13 Approved by: Javi Mann M.D. on 08/22/2019 at 9:55
== END ==
PROVIDERS: PCP Internal Medicine; Visit Provider Internal Medicine
DX: D37.2 Neoplasm of uncertain behavior of small intestine (principal); N85.9 Noninflammatory disorder of uterus, unspecified; N13.30 Unspecified hydronephrosis

== ENCOUNTER → 2019-09-10 11:38 | Outpatient (CLI) | payer MEDICARE, OTHER, SELFPAY ==
[2019-09-10 11:47] LABS: Bacteria Urine None Seen; RBC Urine None Seen (0-5/HPF); WBC Urine None Seen (0-5/HPF)
[2019-09-10 13:49] LABS: Add Manual Diff / Slide Review NO; Basophils Absolute Auto 0 /uL (0-100); Basophils Percent Auto 0.8 % (0-2); Eosinophils Absolute Auto 100 /uL (0-450); Eosinophils Percent Auto 2.2 % (2-4); Hematocrit 36.5 % (36-46); Hemoglobin 12.2 g/dL (12.0-16.0); Lymphocytes Absolute Auto 1500 /uL (1100-4500); Lymphocytes Percent Auto 23.5 % (25-40); Mean Corpuscular HGB Conc 33.3 % (30-36); Mean Corpuscular Hemoglobin 27.2 PG (26-34); Mean Corpuscular Volume 81.6 fL (80-100); Monocytes Absolute Auto 500 /uL (0-900); Monocytes Percent Auto 7.5 % (3-14); Neutrophils Absolute Auto 4100 /uL (1500-7000); Platelet Count 290 X10^3/uL (150-400); Red Blood Cell Count 4.47 X10^6/uL (4.0-5.2); Red Cell Distribution Width 14.3 % (11.6-14.8); White Blood Cell Count 6.2 X10^3/uL (4.5-11.0)
[2019-09-10 13:50] LABS: Appearance Urine UA CLEAR; Bilirubin Urine UA NEGATIVE (NEGATIVE); Color Urine UA YELLOW; Glucose Urine UA 1+ g/dL (Negative); Ketones Urine UA NEGATIVE (NEGATIVE); Leukocyte Esterase Urine UA NEGATIVE (NEGATIVE); Nitrite Urine UA NEGATIVE (Negative); Occult Blood Urine UA TRACE-INTACT (Negative); Protein Urine UA NEGATIVE (Negative); Urobilinogen Urine UA 0.2 E.U./dL (0.2); pH Urine UA 5.5 (4.5-8.0)
[2019-09-10 13:54] LABS: Culture Indicated Urine Cult Not Indicated; Urine Comments Microscopic Normal
[2019-09-10 14:07] LABS: Alanine Aminotransferase 15 IU/L (<35); Albumin 4.4 g/dL (3.5-5.0); Albumin Globulin Ratio 1.7 (1.0-2.8); Alkaline Phosphatase 57 U/L (38-126); Amylase 56 U/L (30-110); Aspartate Aminotransferase 23 IU/L (14-36); BUN Creatinine Ratio 18.8 (6-22); Bilirubin Total 0.7 mg/dL (0.2-1.3); Blood Urea Nitrogen 15 mg/dL (7-17); C-Reactive Protein Quant < 0.5 mg/dL (<1.0); Calcium 9.6 mg/dL (8.4-10.2); Carbon Dioxide 26 mmol/L (22-32); Chloride 101 mmol/L (98-107); Estimated Glomerular Filt Rate > 60.0 mL/min (>60); Globulin 2.6 g/dL (1.7-4.1); Glucose 156 mg/dL (80-110); HEMOLYSIS < 15 (0-50); Lactate Dehydrogenase 483 U/L (313-618); Lipase 10 U/L (23-300); Potassium 3.7 mmol/L (3.4-5.1); Sodium 136 mmol/L (137-145)
[2019-09-10 14:11] LABS: Erythrocyte Sedimentation Rate 12 MM/HR (0-20)
== END ==
PROVIDERS: PCP Internal Medicine; Referring Provider Internal Medicine; Visit Provider Internal Medicine
DX: R81 Glycosuria (principal); D25.9 Leiomyoma of uterus, unspecified
CPT/HCPCS: 80053; 81001; 82150; 83615; 83690; 85025; 85651; 86140

== ENCOUNTER → 2020-09-03 11:50 | Outpatient (CLI) | payer MEDICARE, OTHER, SELFPAY ==
--- NOTE | 2020-09-03 | DI.MG.S_ITS ---
BILATERAL DIGITAL SCREENING MAMMOGRAM 3D/2D WITH CAD: 09/03/2020 CLINICAL: Routine screening. Comparison is made to exams dated: 03/22/2019 mammogram and 11/11/2016 mammogram - [facility]. The tissue of both breasts is heterogeneously dense. This may lower the sensitivity of mammography. Current study was also evaluated with a Computer Aided Detection (CAD) system. No significant masses, calcifications, or other findings are seen in either breast. There has been no significant interval change. IMPRESSION: NEGATIVE There is no mammographic evidence of malignancy. A 1 year screening mammogram is recommended. This exam was interpreted at Station ID: [id number]. NOTE: For mammograms, a report in lay terms will be sent to the patient. Approximately 15% of breast malignancies will not be visualized mammographically. In the management of a palpable breast mass, a negative mammogram must not discourage biopsy of a clinically suspicious lesion. Electronically Signed By: Heriberto alcantar/aric:09/03/2020 12:26:38 letter sent: Normal Exam ACR BI-RADS Category 1: Negative [id number]
== END ==
PROVIDERS: PCP Student in an Organized Health Care Education/Training Program; Referring Provider Student in an Organized Health Care Education/Training Program; Visit Provider Student in an Organized Health Care Education/Training Program
DX: Z78.0 Asymptomatic menopausal state (principal); Z12.31 Encounter for screening mammogram for malignant neoplasm of breast; Z82.62 Family history of osteoporosis
CPT/HCPCS: 77063; 77067; 77080

== ENCOUNTER → 2020-12-02 12:44 | Outpatient (CLI) | payer MEDICARE, OTHER, SELFPAY | PROVIDERS: PCP Student in an Organized Health Care Education/Training Program; Visit Provider Obstetrics & Gynecology | DX: R35.0 Frequency of micturition (principal) | CPT/HCPCS: 87086 ==

== ENCOUNTER → 2021-01-13 07:59 | Outpatient (CLI) | payer MEDICARE, OTHER, SELFPAY ==
--- NOTE | 2021-01-13 08:00 | DI.RAD.S_ITS ---
PROCEDURE: XR LUMBAR SPINE MIN 4V COMPARISON: [facility], , L-SPINE 2-3 VIEWS, 03/26/2013, 18:39. INDICATIONS: BACK PAIN FINDINGS: The lumbar spine has multilevel degenerative changes. The patient is status post pedicular screw and danielle fixation spanning from L4-L5. Status post discectomy and interbody fixation at L4-5. There is disc space narrowing at L2-3 and L3-4. Endplate sclerosis at L3-4 is seen. L3-4 has grade 1 anterolisthesis. Facet arthrosis from L2-3 and L3-4 are seen. No vertebral body height loss. There is rightward curvature of the lumbar spine. Both hips have degenerative changes. IMPRESSION: 1. Multilevel degenerative changes of the lumbar spine. 2. Postoperative changes of the lumbar spine of discectomy and fusion at L4-5. 3. Severe degenerative disc disease at L3-4 and facet arthrosis. Dictated by: Earnest Benavides M.D. on 01/13/2021 at 17:00 Approved by: Earnets Benavides M.D. on 01/13/2021 at 17:02
== END ==
PROVIDERS: PCP Student in an Organized Health Care Education/Training Program; Referring Provider Physical Medicine & Rehabilitation; Visit Provider Physical Medicine & Rehabilitation
DX: M43.16 Spondylolisthesis, lumbar region (principal); M47.816 Spondylosis without myelopathy or radiculopathy, lumbar region; M51.36 Other intervertebral disc degeneration, lumbar region; Z98.1 Arthrodesis status
CPT/HCPCS: 72110

== ENCOUNTER → 2021-02-22 10:19 | Outpatient (CLI) | payer MEDICARE, OTHER, SELFPAY ==
[2021-02-22 17:37] LABS: COVID19 -Nasal RAPID Negative (Negative)
== END ==
PROVIDERS: PCP Student in an Organized Health Care Education/Training Program; Visit Provider Physical Medicine & Rehabilitation
DX: Z20.822 Contact with and (suspected) exposure to COVID-19 (principal)
CPT/HCPCS: 87635; C9803

== ENCOUNTER 2021-02-23 12:22 | Outpatient (CLI) | payer MEDICARE, OTHER, SELFPAY ==
[2021-02-23] VITALS (8 sets, daily range): BP systolic 117–143; BP diastolic 55–93; PULSE 65–75; RESP 9–20; TEMP 36.9; O2SAT 96–100
--- NOTE | 2021-02-23 12:25 | DI.RAD.S_ITS ---
PROCEDURE: PAIN L/S FACET INJ/BLK 1ST MAGO COMPARISON: None. INDICATIONS: SPONDYLOSIS FINDINGS: Fluoroscopic spot filming was performed to verify placement of spinal needles at the L3-L4 level(s), as labeled on the films. Appropriate location(s) of the needle tip(s) was confirmed by injection of iodinated contrast. Dictated by: Alexis Whatley M.D. on 02/23/2021 at 15:40 Approved by: Alexis Whatley M.D. on 02/23/2021 at 15:40
[2021-02-23] MEDS: fentaNYL 100 MCG/2 ML INJ 50 MCG IV (13:30)
[2021-02-23] MEDS: MIDAZOLAM 5 MG/5 ML VIAL IV (13:30)
[2021-02-23] MEDS: BETAMETHASONE 30 MG/5 ML MDV 12 MG INJ (13:40)
[2021-02-23] MEDS: IOPAMIDOL 15 ML VIAL 3 ML INJ (13:40)
[2021-02-23] MEDS: BUPIVACAINE 0.5% (PF) VIAL 30 ML (13:40)
--- NOTE | 2021-02-23 13:48 | P.PCN_ITS ---
Date/Time/Diagnoses Date of procedure: 02/23/21 Time of procedure: 13:48 Pre-procedure diagnosis: 1. FACET ARTHROPATHY 2. AXIAL LBP 3. MULTILEVEL DDD Post-procedure diagnosis: same Procedure Notes Procedure: 1. FLUORSCOPICALLY GUIDED CONTRAST CONTROLLED FACET JOINT INJECTIONS BILATERAL L3/4, L4/5 Indications: Enrique is referred by CIARA Rasheed for treatment of Axial LBP Physician: Elroy Joseph Total Fluoroscopy time (seconds): 11 Total sedation minutes: 12 Complications: none Procedure in detail & Post-procedure care: FINDINGS Multilevel Facet Arthropathy with Clinically significant axial LBP DESCRIPTION OF PROCEDURE Fluoroscopically guided, contrast-controlled bilateral L3/4 facet joint injections. Following review of allergy and review of potential side effects and complications, including, but not necessarily limited to, infection, allergic reaction, local tissue breakdown, stroke, temporary or permanent nerve injury, paralysis, and possible , the patient indicated that the patient understood and agreed to proceed. An informed consent document was signed by the patient, witnessed by a nurse, and placed in the patient's chart. Additionally, other tr eatment options including medications, modalities, and physical therapy were reviewed with the patient. After review of previous anaesthesic history and IV conscious sedation the patient was deemed safe to proceed with today's procedure with IV conscious sedation as ASA class II designation. Safety time-out was performed to confirm patient ID, procedure to be performed and site of procedure. IV sedation was accomplished with a combination of 2mg of Versed and 50mcg of Fentanyl was administered by the RN after DO order, titrated to patient comfort during the course of the procedure while the patient remained responsive to all verbal commands. In the prone position, following sterile prep and drape of the lumbar region, the posterior aspect of the L3/4 facet joints were identified fluoroscopically. The skin was anesthetized via a 25-gauge 1.5-inch needle with 1% lidocaine solution into the corresponding facet joints. At this point, a 22-gauge 3.5- inch spinal needle was atraumatically introduced and advanced under fluoroscopic guidance into the corresponding facet joints. Following negative aspiration, injections of approximately 0.2cc of Isovue [address] ment without vascular uptake. The identical procedure was then performed at the L3/4 facet joints on the left. Radiological data, including multiple fluoroscopic views of the lumbosacral spine, reveal a spinal needle at the L3/4 facet joints bilaterally. Subsequent views show flow of contrast material both superiorly and inferiorly within the joint space without vascular or intrathecal uptake. At this point, a total of 0.5cc including a mixture of 0.25cc Marcaine and 0.25cc betamethasone was injected without complication into each of the corresponding facet joints. The patient tolerated the procedure well without signs or symptoms of complications prior to transfer to the recovery area continued monitoring without incident. The patient was then transferred to the recovery area where they were observed for an appropriate period of time after the injection. The patient reported a VAS score of 7 prior to the procedure and a post-procedure VAS of 0. POST OP INSTRUCTIONS The patient was provided a Pain Log to continue to record their response to the target-specific procedure prior to follow-up visit with their referring physician. Additionally, specific post-injection care instructions and a contact number to our office were provided if concerns arise regarding possible complications associated with the procedure are suspected.
== END 2021-02-23 14:05 | disposition home or self-care (01) ==
LOC: RAD 12:24
PROVIDERS: PCP Student in an Organized Health Care Education/Training Program; Referring Provider Physical Medicine & Rehabilitation; Visit Provider Physical Medicine & Rehabilitation
DX: M47.816 Spondylosis without myelopathy or radiculopathy, lumbar region (principal); M51.36 Other intervertebral disc degeneration, lumbar region; M54.59 Other low back pain
CPT/HCPCS: 64493; 99152; J0702; J2250; J3010

== ENCOUNTER → 2021-05-10 12:38 | Outpatient (CLI) | payer MEDICARE, OTHER, SELFPAY ==
--- NOTE | 2021-05-10 12:40 | DI.MRI.S_ITS ---
PROCEDURE: MR CERVICAL SPINE WO CON INDICATIONS: on going neck pain TECHNIQUE: Noncontrast sagittal T1 spin echo and T2 fast spin echo, sagittal STIR, foraminal oblique sagittal T2 fast spin echo, and axial gradient echo or T2 fast spin echo through the cervical spine. COMPARISON: None. FINDINGS: Image quality: Excellent. Alignment and Curvature: There is normal bony alignment. Bone Marrow: Marrow demonstrates normal overall signal. Spinal Cord: Visualized spinal cord has normal size and signal. No cerebellar tonsillar herniation. Paraspinous Soft Tissues: No paravertebral masses. Prevertebral soft tissues are normal in thickness. C2-C3: No significant disc bulge. The foramina and central canal are patent. C3-C4: Degenerative disc disease with endplate degenerative changes, disc osteophytes, uncovertebral hypertrophy, and a diffuse disc bulge asymmetric to the right cause moderate bilateral foraminal stenosis. The central canal has mild stenosis. C4-C5: Degenerative disc disease with endplate degenerative changes, disc osteophytes, uncovertebral hypertrophy, and a diffuse disc bulge cause moderate bilateral foraminal stenosis. The central canal is patent. C5-C6: Degenerative disc disease with endplate degenerative changes, disc osteophytes, uncovertebral hypertrophy, and a diffuse disc bulge cause moderate bilateral foraminal stenosis. The central canal has severe stenosis C6-C7: Degenerative disc disease with endplate degenerative changes, disc osteophytes, uncovertebral hypertrophy, and a diffuse disc bulge with a central protrusion cause moderate bilateral foraminal stenosis. The central canal has severe stenosis. C7-T1: Diffuse disc bulge causes mild left foraminal stenosis. The right foramen and central canal are patent. IMPRESSION: 1. Multilevel cervical spondylosis causing multilevel foraminal stenosis as above. 2. Severe central canal stenosis at C5-6 and C6-7. Mild central canal stenosis at C3-4. 3. No cord edema or encephalomalacia. Dictated by: Earnest Benavides M.D. on 05/11/2021 at 14:31 Approved by: Earnest Benavides M.D. on 05/11/2021 at 14:36
== END ==
PROVIDERS: PCP Student in an Organized Health Care Education/Training Program; Referring Provider Physical Medicine & Rehabilitation; Visit Provider Physical Medicine & Rehabilitation
DX: M47.22 Other spondylosis with radiculopathy, cervical region (principal); M48.02 Spinal stenosis, cervical region
CPT/HCPCS: 72141

== ENCOUNTER → 2021-06-01 10:39 | Outpatient (CLI) | payer MEDICARE, OTHER, SELFPAY ==
[2021-06-01 12:50] LABS: COVID19 -Nasal RAPID Negative (Negative)
== END ==
PROVIDERS: PCP Student in an Organized Health Care Education/Training Program; Referring Provider Physical Medicine & Rehabilitation; Visit Provider Physical Medicine & Rehabilitation
DX: Z20.822 Contact with and (suspected) exposure to COVID-19 (principal)
CPT/HCPCS: 87635; C9803

== ENCOUNTER 2021-06-03 08:30 | Outpatient (CLI) | payer MEDICARE, OTHER, SELFPAY ==
[2021-06-03] VITALS (9 sets, daily range): BP systolic 104–138; BP diastolic 59–76; PULSE 64–88; RESP 12–20; TEMP 36.9; O2SAT 96–100
--- NOTE | 2021-06-03 08:33 | DI.RAD.S_ITS ---
PROCEDURE: PAIN C/T INTERLAMINAR INJECT INDICATIONS: SPINAL STENOSIS COMPARISON: [facility], XA, PAIN L/S FACET INJ/BLK 1ST MAGO, 02/23/2021, 13:35. FINDINGS: Fluoroscopic spot filming was performed to verify placement of a spinal needle at the C6-C7 level, as labeled on the films. Appropriate location of the needle tip was confirmed by injection of iodinated contrast. IMPRESSION: No significant intraprocedural abnormality. Dictated by: Nikolay Jaramillo M.D. on 06/03/2021 at 9:34 Approved by: Nikolay Jaramillo M.D. on 06/03/2021 at 9:34
[2021-06-03] MEDS: fentaNYL 100 MCG/2 ML INJ 50 MCG IV (09:45)
[2021-06-03] MEDS: MIDAZOLAM 5 MG/5 ML VIAL IV (09:45)
[2021-06-03] MEDS: DEXAMETHASONE 10 MG/ML VIAL 30 MG INJ (09:48)
[2021-06-03] MEDS: IOPAMIDOL 15 ML VIAL 3 ML INJ (09:48)
[2021-06-03] MEDS: BUPIVACAINE 0.25% (PF) VIAL 2 ML INJ (09:48)
--- NOTE | 2021-06-03 10:00 | P.PCN_ITS ---
Date/Time/Diagnoses Date of procedure: 06/03/21 Time of procedure: 10:00 Pre-procedure diagnosis: 1. CERVICAL STENOSIS, 2. CERVICAL HNP WITH UPPER EXTREMITY RADICULAR FEATURES Post-procedure diagnosis: same Procedure Notes Procedure: 1. FLUORSCOPICALLY GUIDED CONTRAST CONTROLLED INTERLAMINAR EPIDURAL STEROID INJECTION - C6/7 TL YONNY Indications: Enrique is referred by Promise Rasheed for treatment of Cervical HNP with Upper Extremity Paresthesias. Physician: Elroy Joseph Total Fluoroscopy time (seconds): 32 Total sedation minutes: 11 Complications: none Procedure in detail & Post-procedure care: FINDINGS Cervical Stenosis due to disc deterioration and nerve root irritation and nerve root irritation DESCRIPTION OF PROCEDURE Fluoroscopically guided, contrast-controlled C6/7 translaminar epidural steroid injection with conscious sedation. Following review of allergy and review of potential side effects and complications, including, but not necessarily limited to, infection, allergic reaction, local tissue breakdown, temporary as well as permanent nerve injury, stroke, paralysis, and possible , the patient indicated that patient understood and agreed to proceed. An informed consent document was signed by the patient, witnessed by a nurse, and placed in the patient's chart. Additionally, other treatment options including modalities, medications, and physical therapy were reviewed with the patient. After review of previous anaesthesic history and IV conscious sedation the patient was deemed safe to proceed with today?s procedure with IV conscious s edation as ASA class II designation. Safety time-out was performed to confirm patient ID, procedure to be performed and site of procedure. IV sedation was accomplished with a combination of 2mg of Versed and 50mcg of Fentanyl administered by the RN after DO order, titrated to patient comfort during the course of the procedure while the patient remained responsive to all verbal commands. In the prone position, following sterile prep and drape of the cervical region, the C6/7 translaminar space was identified fluoroscopically. The skin was anesthetized via a 25-gauge 1.5-inch needle with 1% lidocaine solution. At this point, a 25-gauge, 2.5-inch short bevel spinal needle was atraumatically introduced and advanced under fluoroscopic guidance into epidural space at the C6/7 translaminar space. Depth was confirmed on lateral view. Radiological data, including multiple fluoroscopic views of the cervical spine, reveal a spinal needle at the C6/7 translaminar space. Lateral views then show placement of the needle in the epidural space. Subsequent views show contrast material flowing superiorly and inferiorly in the epidural space. DSA fluoroscopy with live contrast injection, once again, confirmed no vascular or intrathecal uptake. At this point, using loss of resistance technique with saline and air, the epidural space was entered. Following negative aspiration, injection of approximately 1.5 cc of Isovue-200 with live fluoroscopy in the AP view confirmed epidural flow in the epidural space without vascular or intrathecal uptake observed. Subsequently, a test dose of 1 cc of 1% lidocaine solution was injected and patient was observed for two minutes without signs or symptoms of complications, including abdominal pain, shortness of breath, bilateral upper or lower extremity weakness, nausea and vomiting, prior to steroid injection. At this point, 3cc or 30mg of dexamethasone was then injected without incident. The patient tolerated the procedure well without signs or symptoms of complications prior to being transferred to the recovery area for further monitoring, The patient was then transferred to the recovery area where they were observed for an appropriate period of time after the injection. The patient reported a VAS score of 6 prior to the procedure and a post-procedure VAS of 0. POST OP INSTRUCTIONS The patient was provided a Pain Log to continue to record their response to the target-specific procedure prior to follow-up visit with the referring provider. Additionally, specific post-injection care instructions and a contact number to our office were provided if concerns arise regarding possible complications associated with the procedure are suspected.
== END 2021-06-03 10:20 | disposition home or self-care (01) ==
PROVIDERS: PCP Student in an Organized Health Care Education/Training Program; Referring Provider Physical Medicine & Rehabilitation; Visit Provider Physical Medicine & Rehabilitation
DX: M48.02 Spinal stenosis, cervical region (principal); M50.123 Cervical disc disorder at C6-C7 level with radiculopathy
CPT/HCPCS: 62321; 99152; J1100; J2250; J3010

== ENCOUNTER 2021-07-27 21:35 | Emergency (ER) | payer MEDICARE, OTHER, SELFPAY ==
[2021-07-13 13:56] VITALS: BMI 149.7
[2021-07-27 21:44] VITALS: BP 169/84; PULSE 71; RESP 18; TEMP 36.6; O2SAT 100; BMI 26.5
--- NOTE | 2021-07-27 22:01 | ED.HA ---
HPI - Headache General Chief Complaint: Headache Stated Complaint: throbbing ppain behind rt eye, nondenominational area Time Seen by Provider: 07/27/21 22:01 Mode of arrival: Ambulatory History of Present Illness HPI Narrative: 75F nonsmoker with a history of arthritis, gastric mass , and uterine fibroid presents with her in the chief complaint of a right-sided headache event gradually fluctuating over the course of the day. She states that it is absent of any fever or chills, she has no neck pain. She admits to gradual onset largely over her right nondenominational. She admits to some blurring of her vision earlier in the day but that has since resolved. She denies any chest pain or shortness of breath. She has had nausea but denies any vomiting. She denies any new medications or dietary change. She takes no blood thinners. Related Data Home Medications Medication Instructions Recorded Confirmed diclofenac sodium 1 % topical gel 1 ashlie TOPICAL QDAYP PRN #0 06/27/16 07/20/21 (Voltaren) celecoxib [Celebrex] 200 mg PO DAILY 12/22/17 07/20/21 hydrocodone 5 mg-acetaminophen 325 0.5 tab PO Q6HR 07/28/19 07/20/21 mg tablet lisinopril 10 1 tab PO DAILY 07/28/19 07/20/21 mg-hydrochlorothiazide 12.5 mg tablet pantoprazole 40 mg tablet,delayed 40 mg PO DAILY 11/14/19 07/20/21 release cholecalciferol (vitamin D3) PO DAILY 02/03/21 07/20/21 gabapentin 1,200 mg PO BEDTIME 02/03/21 07/20/21 probiotic PO 02/03/21 07/20/21 tolterodine 2 mg capsule,extended 2 mg PO DAILY PRN cap 02/03/21 07/20/21 release 24 hr (Detrol LA) vitamin B complex PO DAILY 02/03/21 07/20/21 Previous Rx's Medication Instructions Recorded ondansetron HCl 4 mg tablet 4 mg PO Q8H PRN #30 tab 08/01/19 (Zofran) estradiol 0.0375 mg/24 hr 1 patch TRANSDERMAL 2XW #8 ea 01/15/21 semiweekly transdermal patch estradiol 0.5 mg tablet 0.5 mg PO DAILY #30 tab 01/05/22 progesterone micronized 200 mg 200 mg PO BEDTIME #90 cap 05/26/21 capsule (Prometrium) CMP Estradiol 10mcg See Rx Instructions .ROUTE 06/28/21 .COMPLEX #24 tab Allergies Allergy/AdvReac Type Severity Reaction Status Date / Time epinephrine [EPINEPHRINE] Allergy Severe I WENT Verified 07/20/21 13:00 INTO SHOCK, TACHYCARDIA adhesive [ADHESIVE] Allergy Intermediate STERI-STRIP: Verified 07/20/21 13:00 RASH,INFECTION Penicillins [PENICILLINS] Allergy Intermediate RASH Verified 07/20/21 13:00 oxybutynin AdvReac Severe severe Verified 07/20/21 13:00 oral blisters, lip swelling Review of Systems Review of Systems Narrative: GENERAL: Denies chills, fatigue, malaise, fever, sweats. HEENT: Denies sinus pain, ear pain, sore throat, difficulty swallowing, dizziness. RESPIRATORY: Denies dyspnea, cough, wheezing, hemoptysis, sputum. CARDIOVASCULAR: Denies chest pain, palpitations, orthopnea, edema, GASTROINTESTINAL: Denies nausea, vomiting, abdominal pain, diarrhea, constipation, melena. : Denies dysuria, frequency, incontinence, hematuria, urinary retention. MUSCULOSKELETAL: denies weakness, joint pain, or bony pain SKIN: Denies rash, skin lesions, or other NEUROLOGIC: See HPI PSYCHIATRIC: No concerning psychosocial issues. 12 point review of systems is negative except for those stated above Patient History Medical History Arthritis of facet joint of lumbar spine Atrophic vaginitis Back pain Cervical radiculopathy CTS (carpal tunnel syndrome) GERD (gastroesophageal reflux disease) HTN (hypertension) Neck pain Ovarian tumor Postmenopausal HRT (hormone replacement therapy) ARGENIS (stress urinary incontinence, female) Urgency incontinence Urinary frequency Surgical History Hx of arthroscopy of left knee (12/09/15) Hx of laminectomy Hx of repair of right rotator cuff S/P arthroscopy of right shoulder Status post cataract extraction of both eyes with insertion of intraocular lens (~2018) Family History Mother Cancer Hypertension Father Diabetes mellitus Social History household members: spouse Smoking Status: Never smoker alcohol intake: current Smoking Status: Never smoker alcohol intake frequency: holidays/special occasions only Substance Use Type: does not use Exam Narrative Exam Narrative: GENERAL: [75] year old patient appears stated age. Well-developed patient, in mild distress. HEAD: Atraumatic. Normocephalic. No pain on palpation over nondenominational EYES: Pupils equal round and reactive. Extraocular motions intact. No scleral icterus. No injection or drainage. ENT: Nose without bleeding, purulent drainage. Throat without erythema, tonsillar hypertrophy or exudate. Airway patent. NECK: Trachea midline. Non tender CARDIOVASCULAR: Regular rate and rhythm without murmurs, gallops, or rubs. RESPIRATORY: Clear to auscultation. Breath sounds equal bilaterally. No wheezes, rales, or rhonchi. GASTROINTESTINAL: Abdomen soft, non-tender, nondistended. EXTREMITIES: No edema or joint tenderness. BACK: Nontender without deformity or crepitance. No flank tenderness. NEURO: AOx3. Cranial nerves 2-12 grossly intact SKIN: No rash or erythema of visible areas Initial Vital Signs Initial Vital Signs: Vital Signs Temperature 97.9 F 07/27/21 21:44 Pulse Rate 71 07/27/21 21:44 Respiratory Rate 18 07/27/21 21:44 Blood Pressure 169/84 H 07/27/21 21:44 Pulse Oximetry 100 07/27/21 21:44 Course Orders Ordered: ED Orders 07/28/21 00:25 CRP [C-Reactive Protein Quant] Stat Complete Blood Count AUTO DIFF Stat Comprehensive Metabolic Panel Stat ESR [Erythrocyte Sedimentation Rate] Stat 07/28/21 00:33 CT head/brain wo con Stat Vital Signs Vital signs: Vital Signs - 8 hr 07/27/21 21:44 07/27/21 23:23 Temperature 97.9 F 97.4 F L Pulse Rate 71 71 Respiratory Rate 18 18 Blood Pressure 169/84 H 166/77 H Pulse Oximetry 100 99 MDM - Headache Lab Data Result diagrams: 07/28/21 00:25 07/28/21 00:25 Labs: Lab Results 07/28/21 07/28/21 Range/Units 00:25 00:25 WBC 10.5 (4.5-11.0) X10^3/uL RBC 4.31 (4.0-5.2) X10^6/uL Hgb 11.8 L (12.0-16.0) g/dL Hct 36.5 (36-46) % MCV 84.6 (80-100) fL MCH 27.5 (26-34) PG MCHC 32.5 (30-36) % RDW 13.6 (11.6-14.8) % Plt Count 374 (150-400) X10^3/uL Neut % (Auto) 59.6 (50-75) % Lymph % (Auto) 28.4 (25-40) % [place] % (Auto) 8.4 (3-14) % Eos % (Auto) 3.0 (2-4) % Baso % (Auto) 0.6 (0-2) % Neut # (Auto) 6200 (9742-1030) /uL Lymph # (Auto) 3000 (7175-8128) /uL [place] # (Auto) 900 (0-900) /uL Eos # (Auto) 300 (0-450) /uL Baso # (Auto) 100 (0-100) /uL ESR 14 (0-20) MM/HR Sodium 135 L (137-145) mmol/L Potassium 4.0 (3.4-5.1) mmol/L Chloride 102 (98-107) mmol/L Carbon Dioxide 32 (22-32) mmol/L BUN 21 H (7-17) mg/dL Creatinine 0.96 (0.52-1.04) mg/dL Estimated GFR 56.7 L (>60) mL/min BUN/Creatinine Ratio 21.9 (6-22) Glucose 111 H (80-110) mg/dL Calcium 9.3 (8.4-10.2) mg/dL Total Bilirubin 0.4 (0.2-1.3) mg/dL AST 23 (14-36) IU/L ALT 16 (<35) IU/L Alkaline Phosphatase 55 (38-126) U/L C-Reactive Protein < 0.5 (<1.0) mg/dL Total Protein 7.4 (6.3-8.2) g/dL Albumin 4.4 (3.5-5.0) g/dL Globulin 3.0 (1.7-4.1) g/dL Albumin/Globulin Ratio 1.5 (1.0-2.8) MDM Narrative Medical decision making narrative: Headache considerations include, but not limited to: Subarachnoid hemorrhage, but unlikely as patient denies sudden onset of pain, not worst of life, or neck pain Meningitis considered, but thought unlikely given lack of Brudzinski's, Kernig's sign, altered mental status or fever Giant cell arteritis considered, but thought unlikely given lack of unilateral findings, pain in nondenominational, vision change HTN Emergency considered, but thought unlikely given normal vitals Other serious diagnoses considered unlikely given lack of red flag findings such as sudden onset, increasing frequency, immunocompromise, systemic signs (fever, chills, stiff neck, or rash), focal neurologic findings, trauma, blood thinners, etc. Discharge Plan Departure Patient Disposition: Home Clinical Impression: Headache Instructions: DI for Headache Activity Restrictions/Additional Instructions: *You have been diagnosed with [ Headache ] as we discussed, your history, physical exam, labs and CT scan are very reassuring. There is no evidence of bleeding in your brain, lab abnormalities to suggest temporal arteritis or other red flag symptoms. *What to do: *Take medications as directed *Follow up with your primary care provider in 2-3 days, call for an appointment. Let them know you were seen in the Emergency Department and that we ask that you be seen in follow up *Return to ER if you should have any new, worsening or concerning symptoms, such as [ fever > 101F, neck pain or stiffness, vomiting, confusion, seizure, focal weakness, vision change, speech deficit or other concerning symptoms ] Prescriptions: No Action diclofenac sodium [Voltaren] 1 % gel 1 ashlie Topical QDAYP PRN (Reason: Pain) Qty: 0 0RF CMP Estradiol 10mcg See Rx Instructions .ROUTE .COMPLEX Qty: 24 3RF Rx Instructions: 1 tablet vaginally at night 2x week; [facility] estradiol 0.0375 mg/24 hr patch semiweekly 1 patch transdermal 2XW Qty: 8 12RF Rx Instructions: apply 1 patch for 3 days alternating with 1 patch for 4 days each week for 3 wks per 4-wk cycle progesterone micronized [Prometrium] 200 mg capsule 200 mg PO BEDTIME Qty: 90 4RF estradiol 0.5 mg tablet 0.5 mg PO DAILY Qty: 30 12RF pantoprazole 40 mg tablet,delayed release (DR/EC) 40 mg PO DAILY 0RF ondansetron HCl [Zofran] 4 mg tablet 4 mg PO Q8H PRN (Reason: nausea and vomiting) Qty: 30 0RF hydrocodone-acetaminophen 5-325 mg tablet 0.5 tab PO Q6HR 0RF lisinopril-hydrochlorothiazide 10-12.5 mg tablet 1 tab PO DAILY 0RF celecoxib 200 mg PO DAILY 0RF gabapentin 1,200 mg PO BEDTIME 0RF tolterodine [Detrol LA] 2 mg capsule,extended release 24hr 2 mg PO DAILY PRN0RF vitamin B complex PO DAILY 0RF cholecalciferol (vitamin D3) PO DAILY 0RF probiotic PO 0RF Referrals: Adilene Rasheed PA-C [Primary Care Provider] -
[2021-07-27 23:23] VITALS: BP 166/77; PULSE 71; RESP 18; TEMP 36.3; O2SAT 99
--- NOTE | 2021-07-28 00:33 | DI.CT.S_ITS ---
PROCEDURE: CT HEAD/BRAIN WO CON INDICATIONS: worst headache TECHNIQUE: Noncontrast 4.5 mm thick angled axial sections acquired from the foramen magnum to the vertex, with coronal and sagittal reformats. For radiation dose reduction, the following was used: automated exposure control, adjustment of mA and/or kV according to patient size. COMPARISON: None. FINDINGS: Image quality: Excellent. CSF spaces: Basal cisterns are patent. No extra-axial fluid collections. The ventricles are symmetric in size and shape. Brain: No acute intracranial hemorrhage or mass effect. There is cerebral volume loss for age, with resultant ventricular and sulcal prominence. There are periventricular and deep white matter chronic small vessel ischemic changes. There is intracranial internal carotid artery atherosclerosis. Skull and face: A calcified extra-axial lesion along the left frontal calvarium measuring 10 x 9 x 6 mm is most likely a meningioma. No edema is seen in the adjacent brain parenchyma. Calvarium and visualized facial bones appear intact, without suspicious lesions. Sinuses: Visualized sinuses and mastoids are clear. IMPRESSION: 1. No acute intracranial abnormality. 2. Suspected small left frontal convexity calcified meningioma. 3. Mild age related cerebral volume loss and chronic microvascular ischemic changes. Dictated by: Heriberto Aviles M.D. on 07/28/2021 at 0:57 Approved by: Heriberto Aviles M.D. on 07/28/2021 at 1:01
[2021-07-28 00:42] LABS: Add Manual Diff / Slide Review NO; Basophils Absolute Auto 100 /uL (0-100); Basophils Percent Auto 0.6 % (0-2); Eosinophils Absolute Auto 300 /uL (0-450); Hematocrit 36.5 % (36-46); Hemoglobin 11.8 g/dL (12.0-16.0); Lymphocytes Absolute Auto 3000 /uL (1100-4500); Lymphocytes Percent Auto 28.4 % (25-40); Mean Corpuscular HGB Conc 32.5 % (30-36); Mean Corpuscular Hemoglobin 27.5 PG (26-34); Mean Corpuscular Volume 84.6 fL (80-100); Monocytes Absolute Auto 900 /uL (0-900); Monocytes Percent Auto 8.4 % (3-14); Neutrophils Absolute Auto 6200 /uL (1500-7000); Neutrophils Percent Auto 59.6 % (50-75); Platelet Count 374 X10^3/uL (150-400); Red Blood Cell Count 4.31 X10^6/uL (4.0-5.2); Red Cell Distribution Width 13.6 % (11.6-14.8); White Blood Cell Count 10.5 X10^3/uL (4.5-11.0)
--- NOTE | 2021-07-28 00:46 | PC.NURSE ---
to ct per stretcher
[2021-07-28 00:47] LABS: Alanine Aminotransferase 16 IU/L (<35); Albumin 4.4 g/dL (3.5-5.0); Albumin Globulin Ratio 1.5 (1.0-2.8); Alkaline Phosphatase 55 U/L (38-126); Aspartate Aminotransferase 23 IU/L (14-36); BUN Creatinine Ratio 21.9 (6-22); Bilirubin Total 0.4 mg/dL (0.2-1.3); Blood Urea Nitrogen 21 mg/dL (7-17); Calcium 9.3 mg/dL (8.4-10.2); Carbon Dioxide 32 mmol/L (22-32); Chloride 102 mmol/L (98-107); Estimated Glomerular Filt Rate 56.7 mL/min (>60); Glucose 111 mg/dL (80-110); Sodium 135 mmol/L (137-145); Total Protein 7.4 g/dL (6.3-8.2)
[2021-07-28 01:02] LABS: C-Reactive Protein Quant < 0.5 mg/dL (<1.0); HEMOLYSIS 19 (0-50)
[2021-07-28 01:11] LABS: Erythrocyte Sedimentation Rate 14 MM/HR (0-20)
== END 2021-07-28 01:43 | disposition home or self-care (01) ==
PROVIDERS: Emergency Provider Emergency Medicine; PCP Student in an Organized Health Care Education/Training Program
DX: R51.9 Headache, unspecified (principal)
CPT/HCPCS: 36415; 70450; 80053; 85025; 85651; 86140; 99284

== ENCOUNTER → 2021-08-19 11:16 | Outpatient (CLI) | payer MEDICARE, OTHER, SELFPAY ==
[2021-07-13 13:56] VITALS: BMI 149.7
== END ==
PROVIDERS: Family Provider Physical Medicine & Rehabilitation; PCP Student in an Organized Health Care Education/Training Program; Referring Provider Physical Medicine & Rehabilitation; Visit Provider Physical Medicine & Rehabilitation
DX: M54.12 Radiculopathy, cervical region (principal)
CPT/HCPCS: 95885; 95886; 95912

== ENCOUNTER → 2021-11-14 13:41 | Outpatient (CLI) | payer MEDICARE, OTHER, SELFPAY ==
[2021-11-10 15:51] VITALS: BMI 149.7
--- NOTE | 2021-11-14 13:44 | DI.RAD.S_ITS ---
PROCEDURE: XR KNEE RT 3V INDICATIONS: right knee injury TECHNIQUE: 3 views of the knee were acquired. COMPARISON: [facility], ANTON, XR KNEE ARTHRITIC SERIES BI, 08/29/2018, 8:47. [facility], ANTON, KNEE 1-2 VIEWS LEFT, 06/30/2016, 10:22. FINDINGS: Bones: There is a small calcification noted adjacent to the lateral malleolus similar to prior exam and may represent a remote avulsion injury. There is mild tricompartmental osteophytosis. Joint spaces are maintained. Soft tissues: Moderate to large joint effusion. No suspicious soft tissue calcifications. IMPRESSION: No acute osseous abnormality. Moderate to large joint effusion. Mild tricompartmental osteoarthritis. Dictated by: Fritz Hendricks D.O. on 11/14/2021 at 12:58 Approved by: Fritz Hendricks D.O. on 11/14/2021 at 13:04
== END ==
PROVIDERS: Family Provider Physical Medicine & Rehabilitation; PCP Student in an Organized Health Care Education/Training Program; Referring Provider Physician Assistant; Visit Provider Physician Assistant
DX: S89.91XA Unspecified injury of right lower leg, initial encounter (principal); M25.461 Effusion, right knee; M17.11 Unilateral primary osteoarthritis, right knee; X58.XXXA Exposure to other specified factors, initial encounter
CPT/HCPCS: 73562

== ENCOUNTER → 2022-01-04 13:15 | Outpatient (CLI) | payer MEDICARE, OTHER, SELFPAY ==
[2021-11-10 15:51] VITALS: BMI 149.7
--- NOTE | 2022-01-04 | DI.MG.S_ITS ---
BILATERAL DIGITAL SCREENING MAMMOGRAM 3D/2D WITH CAD: 01/04/2022 CLINICAL: Routine screening. Comparison is made to exams dated: 09/03/2020 mammogram, 03/22/2019 mammogram, and 11/11/2016 mammogram - [facility]. The tissue of both breasts is heterogeneously dense. This may lower the sensitivity of mammography. Current study was also evaluated with a Computer Aided Detection (CAD) system. There are benign calcifications in both breasts. No significant masses, calcifications, or other findings are seen in either breast. There has been no significant interval change. IMPRESSION: BENIGN There is no mammographic evidence of malignancy. A 1 year screening mammogram is recommended. Based on the Tyrer Cuzick model (a risk assessment model) the patient's lifetime risk is 5.5% and her 10 year risk is 0.0%. According to the ACR, ACS, and NCCN guidelines, an annual breast MRI exam along with mammogram is recommended if the patient's lifetime risk is 20% or greater. This exam was interpreted at Station ID: [id number]. NOTE: For mammograms, a report in lay terms will be sent to the patient. Approximately 15% of breast malignancies will not be visualized mammographically. In the management of a palpable breast mass, a negative mammogram must not discourage biopsy of a clinically suspicious lesion. Electronically Signed By: Earnest piña/aric:01/04/2022 15:07:52 letter sent: Normal Exam ACR BI-RADS Category 2: Benign Finding(s) 3342F
== END ==
PROVIDERS: Family Provider Physical Medicine & Rehabilitation; PCP Student in an Organized Health Care Education/Training Program; Referring Provider Obstetrics & Gynecology; Visit Provider Obstetrics & Gynecology
DX: Z12.31 Encounter for screening mammogram for malignant neoplasm of breast (principal)
CPT/HCPCS: 77063; 77067

== ENCOUNTER → 2023-02-13 12:02 | Outpatient (CLI) | payer MEDICARE, SELFPAY ==
[2023-01-12 16:27] VITALS: BMI 149.7
[2023-02-13 13:16] LABS: Add Manual Diff / Slide Review NO; Basophils Absolute Auto 0 /uL (0-100); Basophils Percent Auto 0.6 % (0-2); Eosinophils Absolute Auto 200 /uL (0-450); Eosinophils Percent Auto 2.6 % (2-4); Hematocrit 34.2 % (36-46); Hemoglobin 11.5 g/dL (12.0-16.0); Lymphocytes Absolute Auto 1500 /uL (1100-4500); Lymphocytes Percent Auto 23.5 % (25-40); Mean Corpuscular HGB Conc 33.5 % (30-36); Mean Corpuscular Volume 86.5 fL (80-100); Monocytes Absolute Auto 400 /uL (0-900); Neutrophils Absolute Auto 4300 /uL (1500-7000); Neutrophils Percent Auto 66.3 % (50-75); Platelet Count 334 X10^3/uL (150-400); Red Blood Cell Count 3.95 X10^6/uL (4.0-5.2); Red Cell Distribution Width 13.9 % (11.6-14.8); White Blood Cell Count 6.4 X10^3/uL (4.5-11.0)
[2023-02-13 13:35] LABS: Appearance Urine UA CLEAR; Bilirubin Urine UA NEGATIVE (NEGATIVE); Color Urine UA YELLOW; Glucose Urine UA NEGATIVE (Negative); Ketones Urine UA NEGATIVE (NEGATIVE); Leukocyte Esterase Urine UA NEGATIVE (NEGATIVE); Nitrite Urine UA NEGATIVE (Negative); Occult Blood Urine UA NEGATIVE (Negative); Protein Urine UA NEGATIVE (Negative); Urobilinogen Urine UA 0.2 E.U./dL (0.2)
[2023-02-13 13:44] LABS: BUN Creatinine Ratio 11.8 (6-22); Blood Urea Nitrogen 14 mg/dL (7-17); Calcium 9.8 mg/dL (8.4-10.2); Carbon Dioxide 27 mmol/L (22-32); Chloride 100 mmol/L (98-107); Estimated Glomerular Filt Rate 47 mL/min (>60); Glucose 117 mg/dL (80-110); HEMOLYSIS < 15 (0-50); Potassium 4.2 mmol/L (3.4-5.1); Sodium 135 mmol/L (137-145)
[2023-02-13 13:54] LABS: Hemoglobin A1C% w Est Avg Glu 5.8 % (4.0-6.0)
[2023-02-13 14:16] LABS: Bacteria Urine Many (>30); Culture Indicated Urine Cult Not Indicated; RBC Urine None Seen (0-5/HPF); Squamous Epithelial Cell Urine 1-5 /HPF (0-5/HPF); WBC Urine 0-1/HPF (0-5/HPF)
== END ==
PROVIDERS: Family Provider Physical Medicine & Rehabilitation; PCP Student in an Organized Health Care Education/Training Program; Referring Provider Orthopaedic Surgery; Visit Provider Orthopaedic Surgery
DX: Z01.818 Encounter for other preprocedural examination (principal); R73.9 Hyperglycemia, unspecified; Z01.812 Encounter for preprocedural laboratory examination; N39.0 Urinary tract infection, site not specified
CPT/HCPCS: 36415; 80048; 81001; 83036; 85025; 93005

== ENCOUNTER → 2023-07-03 11:02 | Outpatient (CLI) | payer MEDICARE, SELFPAY ==
[2023-03-29 14:23] VITALS: BMI 149.7
--- NOTE | 2023-07-03 11:04 | DI.RAD.S_ITS ---
PROCEDURE: XR LUMBAR SPINE MIN 4V INDICATIONS: BACK AND RIGHT HIP PAIN TECHNIQUE: 5 views of the lumbar spine acquired, including flexion and extension views. COMPARISON: [facility], CR, XR LUMBAR SPINE MIN 4V, 01/13/2021, 7:59. FINDINGS: Bones: 5 nonrib-bearing vertebrae are present. There is normal bony alignment. No vertebral body compression fractures. No suspicious bony lesions. L4-5 interbody fusion with unilateral right danielle and screw instrumentation. Convex left thoracolumbar scoliosis. Soft tissues: Overlying bowel gas pattern is normal. No suspicious soft tissue calcifications. Oblique images unremarkable IMPRESSION: L4-5 interbody fusion with unilateral right danielle and screw instrumentation in good position. No evidence of hardware failure or loosening Approved by: Joe Martin M.D. on 07/03/2023 at 12:56
== END ==
PROVIDERS: Family Provider Physical Medicine & Rehabilitation; PCP Student in an Organized Health Care Education/Training Program; Referring Provider Physical Medicine & Rehabilitation; Visit Provider Physical Medicine & Rehabilitation
DX: M47.816 Spondylosis without myelopathy or radiculopathy, lumbar region (principal); M43.16 Spondylolisthesis, lumbar region; M70.62 Trochanteric bursitis, left hip; M70.61 Trochanteric bursitis, right hip; M79.7 Fibromyalgia; M54.12 Radiculopathy, cervical region; M25.851 Other specified joint disorders, right hip; Z98.1 Arthrodesis status
CPT/HCPCS: 20611; 72110; 99214; J0702

== ENCOUNTER → 2024-09-19 11:48 | Outpatient (CLI) | payer MEDICARE, SELFPAY ==
[2023-11-16 10:15] VITALS: BMI 149.7
--- NOTE | 2024-09-19 11:51 | DI.RAD.S_ITS ---
PROCEDURE: XR KNEE RT 3V INDICATIONS: RIGHT KNEE PAIN TECHNIQUE: 3 views of the knee were acquired. COMPARISON: [facility], , XR KNEE RT 3V, 11/14/2021, 13:33. FINDINGS: Bones: Patient is status post right total knee arthroplasty. Right knee alignment is anatomic. No evidence of hardware loosening or failure. No fractures or dislocations. No suspicious bony lesions. Soft tissues: No joint effusion. No suspicious soft tissue calcifications. IMPRESSION: Prior right total knee arthroplasty with anatomic right knee alignment. No evidence of hardware loosening or failure. No acute fracture or dislocation. No significant joint effusion. Dictated by: Abdifatah Galvez M.D. on 09/19/2024 at 19:55 Approved by: Abdifatah Galvez M.D. on 09/19/2024 at 19:56
--- NOTE | 2024-09-19 11:51 | DI.RAD.S_ITS ---
PROCEDURE: XR SHOULDER LT MIN 2V INDICATIONS: LEFT SHOULDER PAIN TECHNIQUE: 3 views of the shoulder were acquired. COMPARISON: None. FINDINGS: Bones: No fractures or dislocations. Moderate to severe acromioclavicular joint osteoarthritis and mild to moderate glenohumeral joint osteoarthritis is seen. No suspicious bony lesions. Visualized ribs appear intact. Soft tissues: No suspicious soft tissue calcifications. IMPRESSION: No acute shoulder fracture or dislocation. Moderate to severe acromioclavicular joint osteoarthritis and [id number] glenohumeral joint osteoarthritis. No gross soft tissue abnormalities. Dictated by: Abdifatah Galvez M.D. on 09/19/2024 at 19:56 Approved by: Abdifatah Galvez M.D. on 09/19/2024 at 19:58
== END ==
PROVIDERS: Family Provider Physical Medicine & Rehabilitation; PCP Physician Assistant; Referring Provider Physician Assistant; Visit Provider Physician Assistant
DX: M19.012 Primary osteoarthritis, left shoulder (principal); M25.561 Pain in right knee; M25.512 Pain in left shoulder; Z96.651 Presence of right artificial knee joint
CPT/HCPCS: 73030; 73562

== ENCOUNTER → 2024-11-26 10:51 | Outpatient (CLI) | payer MEDICARE, SELFPAY ==
[2024-11-18 13:08] VITALS: BMI 149.7
--- NOTE | 2024-11-26 10:54 | DI.MG.S_ITS ---
MM screening mamm imp BI2D: 11/26/2024. BI-RADS: 0 CLINICAL: 78-year old female for bilateral screening mammogram. Tyrer-Cuzick lifetime risk of 3.7%. No personal or first-degree family history of breast cancer. PRIOR EXAMS 01/04/2022, 09/03/2020, 03/22/2019. MAMMOGRAPHY TECHNIQUE: 2D and 3D (tomosynthesis) digital mammographic views obtained, with additional images as needed for full coverage. Current study was also evaluated with a Computer Aided Detection (CAD) system. DENSITY C. The breasts are heterogeneously dense, which may obscure small masses. MAMMOGRAPHY FINDINGS Right: No suspicious mass, asymmetry, microcalcification, or other abnormality seen. Left: CC only, Inner, Posterior depth: Asymmetry needing additional imaging evaluation. IMPRESSION: Right * No evidence of malignancy. Left (Asymmetry): CC only, Inner, Posterior depth * Incomplete - asymmetry needing additional imaging evaluation. RECOMMENDATIONS Left: CC only, Inner, Posterior depth * Further evaluation with diagnostic mammography and diagnostic ultrasound. Ultrasound to be performed only if needed. OVERALL ASSESSMENT CATEGORY BI-RADS-0: Incomplete - Need Additional Imaging Evaluation. PRELIMINARILY ELECTRONICALLY SIGNED: Mel Gardner M.D. on 11/26/2024 at 11:11:42 PM PT ELECTRONICALLY SIGNED: Mel Gardner M.D. on 11/29/2024 at 11:59:08 AM PT Interpreting Station ID: [id number]
--- NOTE | 2024-11-26 10:56 | DI.MRI.S_ITS ---
PROCEDURE: MR THORACIC SPINE WO CON INDICATIONS: neck pain, radicular symptoms TECHNIQUE: Noncontrast sagittal T1 spine echo and T2 fast spin echo, sagittal STIR, and T2 fast spin echo through the thoracic spine. COMPARISON: None. FINDINGS: Image quality: Excellent. Alignment and Curvature: There is normal bony alignment. Bone Marrow: Marrow is of normal overall signal. No acute vertebral body compression fractures. Mild reactive signal throughout the visualized thoracic and lower cervical endplates. Spinal Cord: Within the lower thoracic cord at the T12 level, there is a high T2 intensity central intramedullary focus measuring 3 mm anteroposterior by 13 mm craniocaudal. Paraspinous Soft Tissues: No paravertebral masses. Disc space levels: Multilevel disc desiccation and mild diffuse disc bulges are present. There is a small central protrusion at T7-T8, causing minimal canal stenosis. IMPRESSION: 1. 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 Further assessment with postcontrast enhanced MRI is recommended. 2. Multilevel degenerative disc disease, causing mild multilevel canal stenoses. No neural impingement. Dictated by: Lopez Celeste M.D. on 11/26/2024 at 12:24 Approved by: Lopez Celeste M.D. on 11/26/2024 at 12:29
--- NOTE | 2024-11-26 10:56 | DI.MRI.S_ITS ---
PROCEDURE: MR LUMBAR SPINE WO CON INDICATIONS: neck pain, radicular symptoms TECHNIQUE: Noncontrast sagittal T1 spin echo and T2 fast echo, sagittal STIR, and T2 fast spin echo through the lumbar spine. In cases with scoliosis, additional coronal T2 fast spin echo may be performed. COMPARISON: [facility], MR, MR LUMBAR SPINE WO CON, 10/23/2017, 13:01. FINDINGS: Image quality: Excellent Left-sided posterior fusion instrumentation with interbody spacer at L4-5. Mild dextroscoliosis of the lumbar spine, centered at L3. Straightening of the lumbar spine. Grade 1 anterolisthesis of L2 on L3, L3 on L4, and L4 on L5. Vertebral body height of the lumbar spine are well maintained. Multilevel mild fibrovascular endplate change, most pronounced and mild at L2-3. Interval development of extensive endplate sclerosis at L3-4, degenerative. Multilevel disc bulge and disc desiccation. Conus terminates at the level of T12-L1. Minimally dilated central cord at the conus medullaris. Right neural foraminal stenosis: Mild at L2-3, mild to moderate at L3-4. Left neural foraminal stenosis: Moderate at L2-3, severe at L3-4. Axial images: T11-T12:No central canal stenosis. T12-L1: No central canal stenosis. L1-2: Mild disc bulge. No central canal stenosis. L2-3: Moderate bilateral facet arthropathy with ligamentum flap per trophy. Posterior disc uncovering. Moderate to severe central canal stenosis. L3-4: Severe bilateral facet arthropathy. Posterior disc uncovering. Moderate central canal stenosis. L4-5: Right laminotomy. Moderate bilateral facet arthropathy. Posterior disc uncovering. No central canal stenosis. L5-S1: No central canal stenosis. Additional multilevel mild facet arthropathy in the lumbar spine. Visualized sacrum is intact. No abdominal aortic aneurysm. Colonic diverticulosis. IMPRESSION: 1. Postprocedure changes described above. 2. Multilevel degenerative changes of the lumbar spine, most pronounced at L2-3, where there is moderate to severe central canal stenosis, progressed from prior exam. 3. Additional neural foraminal stenosis , progressed. Dictated by: Pepper Hu M.D. on 11/27/2024 at 17:34 Approved by: Pepper Hu M.D. on 11/27/2024 at 17:49
--- NOTE | 2024-11-26 10:56 | DI.MRI.S_ITS ---
PROCEDURE: MR CERVICAL SPINE WO CON INDICATIONS: neck pain, radicular symptoms TECHNIQUE: Noncontrast sagittal T1 spin echo and T2 fast spin echo, sagittal STIR, foraminal oblique sagittal T2 fast spin echo, and axial gradient echo or T2 fast spin echo through the cervical spine. COMPARISON: [facility], MR, MR CERVICAL SPINE WO CON, 05/10/2021, 12:52. FINDINGS: Image quality: Excellent. Alignment and Curvature: There is loss of normal cervical lordosis. Moderate kyphosis at C3-C5. Bone Marrow: Marrow demonstrates normal overall signal. Moderate reactive signal within the endplates adjacent to the C3-C4, C4-C5, C5-C6, and C7-T1 intervertebral discs. Mild reactive signal within the remaining cervical and upper thoracic endplates. Moderate right mastoid fluid. Spinal Cord: Visualized spinal cord has normal size and signal. No cerebellar tonsillar herniation. Paraspinous Soft Tissues: No paravertebral masses. Prevertebral soft tissues are normal in thickness. C2-C3: Moderate disc desiccation. Mild diffuse disc bulge. Moderate right and mild left facet and uncovertebral hypertrophy. Mild canal stenosis. Severe right and mild left foraminal stenosis. Right C3 nerve root compression. No significant change C3-C4: Moderate disc height loss and desiccation. Moderate diffuse disc bulge/osteophyte. Moderate facet and uncovertebral hypertrophy bilaterally. Moderate to severe canal stenosis. Minimal right cord flattening. Moderate left and moderate to severe right foraminal stenosis. Right C4 nerve root compression. No significant change. C4-C5: Moderate disc height loss and desiccation. Mild diffuse disc bulge. Mild facet and uncovertebral hypertrophy bilaterally. Moderate canal stenosis. Moderate to severe bilateral foraminal stenosis. Mild C5 nerve root compression bilaterally. No significant change. C5-C6: Moderate disc height loss and desiccation. Moderate diffuse disc bulge. Moderate facet and uncovertebral hypertrophy bilaterally. Severe canal stenosis. Moderate cord flattening. Severe bilateral foraminal stenosis with bilateral C6 nerve root compression. No significant change. C6-C7: Moderate disc height loss and desiccation. Mild diffuse disc bulge with superimposed central protrusion. Mild facet and uncovertebral hypertrophy bilaterally. Severe canal stenosis. Mild cord flattening. Moderate to severe bilateral foraminal stenosis with bilateral C7 nerve root compression. No significant change. C7-T1: Moderate disc height loss and desiccation. Moderate diffuse disc bulge. Moderate facet and uncovertebral hypertrophy bilaterally. Mild canal stenosis. Severe bilateral foraminal stenosis with bilateral C8 nerve root compression. No significant change. IMPRESSION: 1. Multilevel degenerative disc and facet disease, as well as uncovertebral hypertrophy. 2. Multilevel canal stenoses, worst at C3-C4, C5-C6, and C6-C7, where there is associated cord flattening. 3. Multilevel intraforaminal nerve root compression throughout the cervical cord as described above. Recommend correlation with clinical symptoms to ascertain relevance of these findings. 4. Right mastoiditis. Dictated by: Lopez Celeste M.D. on 11/26/2024 at 12:18 Approved by: Lopze Celeste M.D. on 11/26/2024 at 12:24
== END ==
LOC: MAMMO 10:52
PROVIDERS: Family Provider Physical Medicine & Rehabilitation; PCP Physician Assistant; Referring Provider Physician Assistant; Visit Provider Physician Assistant
DX: M47.22 Other spondylosis with radiculopathy, cervical region (principal); M50.11 Cervical disc disorder with radiculopathy, high cervical region; M48.02 Spinal stenosis, cervical region; H70.91 Unspecified mastoiditis, right ear; M51.34 Other intervertebral disc degeneration, thoracic region; M51.24 Other intervertebral disc displacement, thoracic region; M48.04 Spinal stenosis, thoracic region; M51.16 Intervertebral disc disorders with radiculopathy, lumbar region; M47.26 Other spondylosis with radiculopathy, lumbar region; M48.061 Spinal stenosis, lumbar region without neurogenic claudication; K57.30 Diverticulosis of large intestine without perforation or abscess without bleeding; G89.29 Other chronic pain; Z98.890 Other specified postprocedural states; Z98.1 Arthrodesis status
CPT/HCPCS: 72141; 72146; 72148; 77063; 77067

== ENCOUNTER → 2024-12-16 11:05 | Outpatient (CLI) | payer MEDICARE, SELFPAY ==
[2024-11-18 13:08] VITALS: BMI 149.7
--- NOTE | 2024-12-16 11:07 | DI.MRI.S_ITS ---
PROCEDURE: MR THORACIC SPINE W CON INDICATIONS: SYRINX SPINAL CORD TECHNIQUE: Noncontrast images were recently performed and not repeated. On these images, pre contrast axial and sagittal T1 weighted images were acquired as well as postcontrast fat saturated T1 weighted images in the axial and sagittal planes. COMPARISON: [facility], MR, MR THORACIC SPINE WO CON, 11/26/2024, 11:02. FINDINGS: Image quality: Excellent. Alignment and curvature: There is normal bony alignment. Marrow: Marrow is of normal overall signal. No acute vertebral body compression fractures. Spinal cord: On the prior examination, there was a small lower cord syrinx seen. On the current study, this is again seen, as demonstrated on series 6, image 7 and on series 7, image 46. No adjacent abnormal enhancement can be seen. No masses are seen. Paraspinous soft tissues: No paravertebral masses or abnormal enhancement. Miscellaneous: Generalized degenerative changes are again seen. IMPRESSION: No masses or abnormal enhancement can be seen to suggest a cause of the previously seen mild syrinx involving the distal thoracic cord. No masses or abnormal enhancement can be seen elsewhere. Dictated by: Nikolay Jaramillo M.D. on 12/16/2024 at 13:08 Approved by: Nikolay Jaramillo M.D. on 12/16/2024 at 13:10
== END ==
PROVIDERS: Family Provider Physical Medicine & Rehabilitation; PCP Physician Assistant; Referring Provider Physician Assistant; Visit Provider Physician Assistant
DX: G95.0 Syringomyelia and syringobulbia (principal); M54.6 Pain in thoracic spine; G89.29 Other chronic pain
CPT/HCPCS: 72147; A9579